=== PATIENT | female | born 1935 | race Caucasian/White ===

== ENCOUNTER 2019-01-19 18:50 | Inpatient (IN) | payer OTHER ==
[~2019-01-19] VITALS: Ht 165.1 cm; Wt 115.2 kg
[2019-01-19] MEDS ORDERED: ZOLOFT100 MG PO (19:04)
[2019-01-19] MEDS ORDERED: SYNTHROID75 MCG PO (19:05)
[2019-01-19] MEDS ORDERED: LISINOPRIL20 MG PO (19:05)
[2019-01-19] MEDS ORDERED: BREO ELLIPTA 21 EACH (19:05)
[2019-01-19] MEDS ORDERED: NORVASC5 MG PO (19:05)
[2019-01-19] MEDS ORDERED: XANAX0.25 MG PO (19:06)
[2019-01-19] MEDS ORDERED: CRESTOR20 MG PO (19:06)
[2019-01-19] MEDS ORDERED: DONEPEZIL HCL10 MG PO (19:06)
[2019-01-19] MEDS ORDERED: COUMADIN6 MG PO (19:06)
[2019-01-19 20:10] LABS: BASOPHILS 0.1 % (0-2); HEMATOCRIT 27.6 % (36.0-48.0); HEMOGLOBIN 8.8 g/dL (12-16); IMMATURE GRANULOCYTES 0.7 % (0-5); LYMPHOCYTES 15.3 % (15-50); MCH 29.5 pg (26.0-34.0); MCHC 31.9 g/dL (31.0-37.0); MCV 92.6 fL (80.0-100.0); MEAN PLATELET VOLUME 8.7 fL (7.4-10.4); MONOCYTES 9.4 % (2-11); NEUTROPHILS 71.5 % (40-80); PLATELET COUNT 287 10x3/uL (130-400); RBC 2.98 10x6/uL (4.00-5.40); RDW 14.8 % (11.5-14.5); WBC 7.3 10x3/uL (4.8-10.8)
[2019-01-19 20:20] LABS: INR 3.11 (0.85-1.17); PROTIME 31.3 SECONDS (11.6-15.0)
[2019-01-19 20:30] VITALS: BP 142/69
[2019-01-19 20:36] LABS: ALBUMIN 2.9 g/dL (3.4-5.0); ALKALINE PHOSPHATASE 35 U/L (46-116); ALT (SGPT) 16 U/L (10-68); BILIRUBIN - TOTAL 1.36 mg/dL (0.2-1.3); CALC OSMOLALITY 293 mosm/kg (275-300); CALCIUM 8.7 mg/dL (8.5-10.1); CARBON DIOXIDE 23.8 mmol/L (21.0-32.0); CHLORIDE - SERUM 101 mmol/L (98-107); CREATININE - SERUM 2.3 mg/dL (0.6-1.3); GLUCOSE 100 mg/dL (74-106); PROTEIN - SERUM 6.1 g/dL (6.4-8.2); SODIUM 134 mmol/L (136-145); UREA NITROGEN 86 mg/dL (7-18); eGFR NON AFRICAN AMERICAN 21 mL/min (90-120)
[2019-01-19 20:47] LABS: CREATINE KINASE 77 UL (21-215); PRO BNP 2054 pg/mL (0-450)
[2019-01-19 20:50] LABS: TROPONIN-I < 0.017 ng/mL (0.000-0.060)
[2019-01-19 20:52] LABS: APPEARANCE CLEAR (CLEAR); BILIRUBIN NEGATIVE (NEGATIVE); COLOR YELLOW (YELLOW); GLUCOSE NEGATIVE (NEGATIVE); KETONE NEGATIVE (NEGATIVE); NITRITE NEGATIVE (NEGATIVE); PROTEIN NEGATIVE (NEGATIVE); SPECIFIC GRAVITY 1.015 (1.005-1.020); UROBILINOGEN NORMAL (NORMAL)
[2019-01-20] VITALS: BP 128/48
[2019-01-20 00:36] VITALS: BP 128/48; BMI 42.4
[2019-01-20 05:35] LABS: BASOPHILS 0 % (0-2); HEMATOCRIT 24.8 % (36.0-48.0); HEMOGLOBIN 7.8 g/dL (12-16); IMMATURE GRANULOCYTES 0.8 % (0-5); LYMPHOCYTES 14.7 % (15-50); MCH 29.1 pg (26.0-34.0); MCHC 31.5 g/dL (31.0-37.0); MCV 92.5 fL (80.0-100.0); MEAN PLATELET VOLUME 8.6 fL (7.4-10.4); MONOCYTES 10.6 % (2-11); NEUTROPHILS 70.9 % (40-80); PLATELET COUNT 269 10x3/uL (130-400); RBC 2.68 10x6/uL (4.00-5.40); WBC 7.7 10x3/uL (4.8-10.8)
[2019-01-20] MEDS ORDERED: ALEVE220 MG PO (06:01)
[2019-01-20] MEDS ORDERED: LANTUS SQ (06:01)
[2019-01-20 06:07] LABS: ANION GAP 13.6 mmol/L (8-16); CALCIUM 8.6 mg/dL (8.5-10.1); CARBON DIOXIDE 24.2 mmol/L (21.0-32.0); CREATININE - SERUM 1.9 mg/dL (0.6-1.3); MAGNESIUM - SERUM 1.8 mg/dL (1.8-2.4); PHOSPHOROUS 4.4 mg/dL (2.5-4.9); POTASSIUM - SERUM 5.8 mmol/L (3.5-5.1)
[2019-01-20 09:22] VITALS: BP 127/40
[2019-01-20 11:10] LABS: INR 3.03 (0.85-1.17); PROTIME 30.6 SECONDS (11.6-15.0)
[2019-01-20 13:48] VITALS: BP 136/84
[2019-01-20] MEDS ORDERED: NAPROSYN500 MG PO (16:25)
[2019-01-20 17:18] VITALS: BP 136/44
[2019-01-20 20:00] VITALS: BP 139/67
[2019-01-21] VITALS: BP 141/64
[2019-01-21 03:00] VITALS: BP 148/53
[2019-01-21 03:59] LABS: BASOPHILS 0.2 % (0-2); EOSINOPHILS 2.9 % (0-7); HEMATOCRIT 25.6 % (36.0-48.0); HEMOGLOBIN 7.9 g/dL (12-16); IMMATURE GRANULOCYTES 1.2 % (0-5); LYMPHOCYTES 14.8 % (15-50); MCH 29.3 pg (26.0-34.0); MCHC 30.9 g/dL (31.0-37.0); MEAN PLATELET VOLUME 8.6 fL (7.4-10.4); MONOCYTES 10.5 % (2-11); NEUTROPHILS 70.4 % (40-80); PLATELET COUNT 274 10x3/uL (130-400); RDW 15.4 % (11.5-14.5); WBC 6.6 10x3/uL (4.8-10.8)
[2019-01-21 04:04] LABS: MCV 94.8 fL (80.0-100.0)
[2019-01-21 04:08] LABS: INR 3.01 (0.85-1.17); PROTIME 30.4 SECONDS (11.6-15.0)
[2019-01-21 04:13] LABS: ALBUMIN 2.5 g/dL (3.4-5.0); ANION GAP 15.9 mmol/L (8-16); BILIRUBIN - TOTAL 0.88 mg/dL (0.2-1.3); CALCIUM 8.5 mg/dL (8.5-10.1); CARBON DIOXIDE 22.3 mmol/L (21.0-32.0); CREATININE - SERUM 1.5 mg/dL (0.6-1.3); POTASSIUM - SERUM 5.2 mmol/L (3.5-5.1); PROTEIN - SERUM 5.9 g/dL (6.4-8.2)
[2019-01-21 08:46] VITALS: BP 151/61
[2019-01-21 12:31] LABS: % SATURATION 12 % (15-55); IRON 34 ug/dl (35-150); TOTAL IRON BIND CAPACITY 265 ug/dl (260-445); UNSAT IRON BIND CAPACITY 231 ug/dl (150-375)
[2019-01-21 13:46] VITALS: BP 146/44
[2019-01-21 18:12] VITALS: BP 157/57
[2019-01-21 20:00] VITALS: BP 141/54
[2019-01-22 05:05] LABS: BASOPHILS 0.1 % (0-2); EOSINOPHILS 3.2 % (0-7); HEMATOCRIT 24.6 % (36.0-48.0); LYMPHOCYTES 15.2 % (15-50); MCH 29.3 pg (26.0-34.0); MCHC 30.5 g/dL (31.0-37.0); MCV 96.1 fL (80.0-100.0); MEAN PLATELET VOLUME 8.4 fL (7.4-10.4); MONOCYTES 9.8 % (2-11); NEUTROPHILS 70.7 % (40-80); PLATELET COUNT 314 10x3/uL (130-400); RBC 2.56 10x6/uL (4.00-5.40); RDW 15.3 % (11.5-14.5); WBC 7.1 10x3/uL (4.8-10.8)
[2019-01-22 05:25] LABS: INR 2.51 (0.85-1.17); PROTIME 26.4 SECONDS (11.6-15.0)
[2019-01-22 05:30] LABS: HEMOGLOBIN 7.5 g/dL (12-16)
[2019-01-22 05:36] LABS: ALBUMIN 2.4 g/dL (3.4-5.0); ANION GAP 14.3 mmol/L (8-16); BILIRUBIN - TOTAL 0.76 mg/dL (0.2-1.3); CALCIUM 8.4 mg/dL (8.5-10.1); CARBON DIOXIDE 22.6 mmol/L (21.0-32.0); CREATININE - SERUM 1.3 mg/dL (0.6-1.3); POTASSIUM - SERUM 4.9 mmol/L (3.5-5.1); PROTEIN - SERUM 5.8 g/dL (6.4-8.2)
[2019-01-22 09:15] VITALS: BP 158/54
[2019-01-22 10:19] LABS: FOLATE (FOLIC ACID) - SERUM 12.2 ng/mL (>3.0)
[2019-01-22 13:50] VITALS: BP 152/62
[2019-01-22 19:01] VITALS: BP 147/75
[2019-01-22 20:41] VITALS: BP 150/69
[2019-01-23 00:57] VITALS: BP 138/56
[2019-01-23 05:54] VITALS: BP 142/53
[2019-01-23 06:10] LABS: BASOPHILS 0.1 % (0-2); EOSINOPHILS 2.7 % (0-7); HEMATOCRIT 29.1 % (36.0-48.0); HEMOGLOBIN 8.8 g/dL (12-16); IMMATURE GRANULOCYTES 1.1 % (0-5); LYMPHOCYTES 14.4 % (15-50); MCH 28.8 pg (26.0-34.0); MCHC 30.2 g/dL (31.0-37.0); MCV 95.1 fL (80.0-100.0); MEAN PLATELET VOLUME 8.5 fL (7.4-10.4); NEUTROPHILS 72.7 % (40-80); PLATELET COUNT 309 10x3/uL (130-400); RBC 3.06 10x6/uL (4.00-5.40); RDW 16.4 % (11.5-14.5); WBC 7.1 10x3/uL (4.8-10.8)
[2019-01-23 06:23] LABS: ALBUMIN 2.7 g/dL (3.4-5.0); ANION GAP 14.2 mmol/L (8-16); BILIRUBIN - TOTAL 1.08 mg/dL (0.2-1.3); CALCIUM 8.6 mg/dL (8.5-10.1); CARBON DIOXIDE 22.2 mmol/L (21.0-32.0); CREATININE - SERUM 1.2 mg/dL (0.6-1.3); POTASSIUM - SERUM 4.4 mmol/L (3.5-5.1); PROTEIN - SERUM 6.3 g/dL (6.4-8.2)
[2019-01-23 06:46] LABS: INR 2.07 (0.85-1.17); PROTIME 22.6 SECONDS (11.6-15.0)
[2019-01-23 08:55] VITALS: BP 132/61
[2019-01-23 13:36] VITALS: BP 129/69
--- NOTE | 2019-01-23 15:36 | MORECARE ---
CASE MANAGEMENT DISCHARGE SUMMARY PATIENT: BENJAMIN PHELPS UNIT: [id number] ADM DATE: 01/19/19 AGE: 83 : 35 SEX: F ROOM/BED: D.2205 AUTHOR: OSVALDO,DOC PHYSICIAN: REFERRING PHYSICIAN: FRANSICO VERGARA MD DATE OF SERVICE: 01/23/19 Discharge Plan Patient Name: BENJAMIN PHELPS Facility: [facility]:[place] : 1935 Planned Disposition: Inpatient Rehab Anticipated Discharge Date: Discharge Date: Expected LOS: Initial Reviewer: [id number] Initial Review Date: 01/19/2019 Generated: 01/23/19 4:35 pm Comments DCP- Discharge Planning Updated by [email or web address]: Carmela Solomon on 01/23/19 2:[address] CM met with and daughter, they had questions about their insurance. They have just moved here from [place] this past week and the patient is unable to care for herself at home and they are unable to care for her either. They have called EMS up to 3 times in one day because they can not get her off the floor or to the bathroom. They have been told that their cigna does not cover in certain counties in [place] & that they are going to have to transition to another insurance that is accepted in [place]. I encouraged them to call cigna to see what is covered for skilled facilities under that plan. I also gave them the number to [facility] for them to call and make an appointment for figure out how and what to do about insurance. They would like inpatient rehab as their first choice and [facility] as their second. GROVER signed and placed in chart. CM to follow and assist as needed DCP- Discharge Planning Updated by [id number]: Michelle Barry on 01/20/19 3:[address] LATE ENTRY 0840 PRIMARY NURSE SPOKE WITH CM THIS AM. SHE REPORTS THE NIGHT NURSE HAD REPORTED THE PATIENT HAD MULTIPLE BRUISES AND WAS NOT CLEAN ON ARRIVAL FROM ER. THEY ARE BOTH CONCERNED ABOUT HER PRESENT CIRCUMSTANCE. PATIENT IS IN PAIN AND REPORTEDLY DIRECTED ALL QUESTIONS TO HER . ER NURSE'S NOTE REVIEWED. NO DESCRIPTION TO HER APPEARENCE. TC TO [facility] [employer] REGARDING SITUATION WHEN THE PATIENT WAS TREATED AND TRANSPORTED. CM REC CB THEN ONE OF THE [employer] PROVIDERS VISITED WITH CM ON SITE. HE REPORTS [employer] IS FAMILIAR WITH THE FAMILY. THEY HAD BEEN TO THE HOUSE ON 5 OCCASIONS TO ASSIST W/ MOVING THE PATIENT. HE REPORTED THEY RECENTLY RELOCATED TO [facility]. THE REPORTEDLY FELL PRIOR TO THE MOVE. [facility] ASS[facility]. THE SERVICE FELT THE PATIENT NEED ACUTE CARE THEREFORE PATIENT WAS TRANSPORTED TO [facility]. PATIENT HAS A AND DAUGHTER. THEY HAVE NOT VISITED TODAY OF THIS TIME. CM WILL FOLLOW TO ASSIST. REPORTEDLY THE WOULD LIKE SKILLED REHAB CARE FOR HIS AT DISCHARGE. CM TO FOLLOW AND ASSIST. Coverage Notice Reviewer: [id number] - Carmela Carbajal Notice Issued Date-Time: 01/23/2019 15:00 Notice Type: Patient Choice Letter Notice Delivered To: Family Member Relationship to Patient: Spouse Record Clerk Salesperson Name: graciela phelps Delivery Method: - Yohana Days: Prior Verbal Notification: Recipient Understood Notice: Recipient Signature: Yes Med Rec Note Co-signed by Attending: Coverage Notice Comment: Patient Name: BENJAMIN PHELPS Page [id number] at 1536 All edits/amendments must be made on the electronic document DICTATION DATE: 01/23/19 1535 METAL STUD FRAMER: MYKEL 01/23/19 1535 RPT#: [id number] DC DATE: STATUS: ADM IN [facility] [address] [place] [address] END OF REPORT
[2019-01-23 16:35] VITALS: BP 128/62
[2019-01-23 20:30] VITALS: BP 137/56
[2019-01-24 00:20] VITALS: BP 126/39
[2019-01-24 05:05] VITALS: BP 119/53
[2019-01-24 05:20] LABS: BASOPHILS 0.5 % (0-2); EOSINOPHILS 2.5 % (0-7); HEMOGLOBIN 9.2 g/dL (12-16); IMMATURE GRANULOCYTES 0.9 % (0-5); LYMPHOCYTES 8.6 % (15-50); MCH 29.5 pg (26.0-34.0); MCHC 30.7 g/dL (31.0-37.0); MCV 96.2 fL (80.0-100.0); MEAN PLATELET VOLUME 8.3 fL (7.4-10.4); MONOCYTES 8.8 % (2-11); NEUTROPHILS 78.7 % (40-80); PLATELET COUNT 264 10x3/uL (130-400); RBC 3.12 10x6/uL (4.00-5.40); RDW 16.2 % (11.5-14.5); WBC 8.8 10x3/uL (4.8-10.8)
[2019-01-24 05:40] LABS: ALBUMIN 2.5 g/dL (3.4-5.0); ANION GAP 13.1 mmol/L (8-16); BILIRUBIN - TOTAL 0.88 mg/dL (0.2-1.3); CALCIUM 8.5 mg/dL (8.5-10.1); CARBON DIOXIDE 22.8 mmol/L (21.0-32.0); CREATININE - SERUM 1.2 mg/dL (0.6-1.3); POTASSIUM - SERUM 4.9 mmol/L (3.5-5.1); PROTEIN - SERUM 6.1 g/dL (6.4-8.2)
[2019-01-24 05:54] LABS: INR 2.05 (0.85-1.17); PROTIME 22.5 SECONDS (11.6-15.0)
[2019-01-24 09:12] VITALS: BP 131/67
[2019-01-24 12:17] VITALS: BP 110/43
[2019-01-24 16:45] VITALS: BP 121/64
[2019-01-24 20:03] VITALS: BP 133/50
[2019-01-25 00:23] VITALS: BP 117/44
[2019-01-25 04:27] LABS: BASOPHILS 0.1 % (0-2); EOSINOPHILS 3.2 % (0-7); HEMATOCRIT 28.9 % (36.0-48.0); HEMOGLOBIN 8.6 g/dL (12-16); IMMATURE GRANULOCYTES 0.8 % (0-5); LYMPHOCYTES 11.1 % (15-50); MCH 28.9 pg (26.0-34.0); MCHC 29.8 g/dL (31.0-37.0); MEAN PLATELET VOLUME 8.6 fL (7.4-10.4); MONOCYTES 7.6 % (2-11); NEUTROPHILS 77.2 % (40-80); PLATELET COUNT 264 10x3/uL (130-400); RBC 2.98 10x6/uL (4.00-5.40); WBC 8.8 10x3/uL (4.8-10.8)
[2019-01-25 04:42] LABS: INR 1.91 (0.85-1.17); PROTIME 21.2 SECONDS (11.6-15.0)
[2019-01-25 04:55] LABS: ALBUMIN 2.4 g/dL (3.4-5.0); ANION GAP 11.6 mmol/L (8-16); BILIRUBIN - TOTAL 0.75 mg/dL (0.2-1.3); CALCIUM 8.5 mg/dL (8.5-10.1); CARBON DIOXIDE 25.1 mmol/L (21.0-32.0); CREATININE - SERUM 1.5 mg/dL (0.6-1.3); POTASSIUM - SERUM 4.7 mmol/L (3.5-5.1); PROTEIN - SERUM 5.7 g/dL (6.4-8.2)
[2019-01-25 05:19] VITALS: BP 109/44
[2019-01-25 08:25] VITALS: BP 120/47
[2019-01-25 12:45] VITALS: BP 140/45
--- NOTE | 2019-01-25 12:50 | MORECARE ---
CASE MANAGEMENT DISCHARGE SUMMARY PATIENT: BENJAMIN PHELPS UNIT: [id number] ADM DATE: 01/19/19 AGE: 83 : 35 SEX: F ROOM/BED: D.2205 AUTHOR: OSVALDO,DOC PHYSICIAN: REFERRING PHYSICIAN: FRANSICO VERGARA MD DATE OF SERVICE: 01/25/19 Discharge Plan Patient Name: BENJAMIN PHELPS Facility: [facility]:[place] : 1935 Planned Disposition: Inpatient Rehab Anticipated Discharge Date: Discharge Date: Expected LOS: Initial Reviewer: [id number] Initial Review Date: 01/19/2019 Generated: 01/25/19 1:50 pm Comments DCP- Discharge Planning Updated by [id number]: Carmela Carbajal on 01/25/19 11:[address] attempted to call to let him know that she has been accepted to inpatient rehab, left message DCP- Discharge Planning Updated by [id number]: Carmela Carbajal on 01/23/19 2:[address] CM met with and daughter, they had questions about their insurance. They have just moved here from [place] this past week and the patient is unable to care for herself at home and they are unable to care for her either. They have called EMS up to 3 times in one day because they can not get her off the floor or to the bathroom. They have been told that their cigna does not cover in certain counties in [place] & that they are going to have to transition to another insurance that is accepted in [place]. I encouraged them to call cigna to see what is covered for skilled facilities under that plan. I also gave them the number to [facility] for them to call and make an appointment for figure out how and what to do about insurance. They would like inpatient rehab as their first choice and [facility] as their second. GROVER signed and placed in chart. CM to follow and assist as needed DCP- Discharge Planning Updated by [email or web address]: Michelle Barry on 01/20/19 3:[address] LATE ENTRY 0840 PRIMARY NURSE SPOKE WITH CM THIS AM. SHE REPORTS THE NIGHT NURSE HAD REPORTED THE PATIENT HAD MULTIPLE BRUISES AND WAS NOT CLEAN ON ARRIVAL FROM ER. THEY ARE BOTH CONCERNED ABOUT HER PRESENT CIRCUMSTANCE. PATIENT IS IN PAIN AND REPORTEDLY DIRECTED ALL QUESTIONS TO HER . ER NURSE'S NOTE REVIEWED. NO DESCRIPTION TO HER APPEARENCE. TC TO [employer] REGARDING SITUATION WHEN THE PATIENT WAS TREATED AND TRANSPORTED. LET[facility]IA REC CB THEN ONE OF THE [facility] PROVIDERS VISITED WITH CM ON SITE. HE REPORTS [facility] IS FAMILIAR WITH THE FAMILY. THEY HAD BEEN TO THE HOUSE ON 5 OCCASIONS TO ASSIST W/ MOVING THE PATIENT. HE REPORTED THEY RECENTLY RELOCATED TO [facility]. THE REPORTEDLY FELL PRIOR TO THE MOVE. [facility] ASSISTED INREFERRAL TO [facility] SCIENT[facility] ADVISOR SERVICE. THE SERVICE FELT THE PATIENT NEED ACUTE CARE THEREFORE PATIENT WAS TRANSPORTED TO [facility]. PATIENT HAS A AND DAUGHTER. THEY HAVE NOT VISITED TODAY OF THIS TIME. CM WILL FOLLOW TO ASSIST. REPORTEDLY THE WOULD LIKE SKILLED REHAB CARE FOR HIS AT DISCHARGE. CM TO FOLLOW AND ASSIST. Coverage Notice Reviewer: [id number] Yulisa Carbajal Notice Issued Date-Time: 01/23/2019 15:00 Notice Type: Patient Choice Letter Notice Delivered To: Family Member Relationship to Patient: Spouse Postal Transportation Clerk Name: graciela phelps Delivery Method: - Yohana Days: Prior Verbal Notification: Recipient Understood Notice: Recipient Signature: Yes Med Rec Note Co-signed by Attending: Coverage Notice Comment: Last DP export: 01/23/19 2:36 pm Patient Name: BENJAMIN PHELPS Page [phone] at 1250 All edits/amendments must be made on the electronic document DICTATION DATE: 01/25/191248 WHITE SUGAR SUPERVISOR: YMKEL 01/25/19 1249 RPT#: [id number] DC DATE: STATUS: ADM IN [facility] [address] [place] [address] END OF REPORT
--- NOTE | 2019-01-25 15:37 | MORECARE ---
CASE MANAGEMENT DISCHARGE SUMMARY PATIENT: BENJAMIN PHELPS UNIT: [id number] ADM DATE: 01/19/19 AGE: 83 : 35 SEX: F ROOM/BED: D.2205 AUTHOR: OSVALDO,DOC PHYSICIAN: REFERRING PHYSICIAN: FRANSICO VERGARA MD DATE OF SERVICE: 01/25/19 Discharge Plan Patient Name: BENJAMIN PHELPS Facility: [facility]:[place] : 1935 Planned Disposition: Inpatient Rehab Anticipated Discharge Date: Discharge Date: Expected LOS: Initial Reviewer: [id number] Initial Review Date: 01/19/2019 Generated: 01/25/19 4:37 pm Comments DCP- Discharge Planning Updated by [id number]: Carmela Carbajal on 01/25/19 11:[address] attempted to call to let him know that she has been accepted to inpatient rehab, left message DCP- Discharge Planning Updated by [id number]: Carmela Carbajal on 01/23/19 2:[address] CM met with and daughter, they had questions about their insurance. They have just moved here from [place] this past week and the patient is unable to care for herself at home and they are unable to care for her either. They have called EMS up to 3 times in one day because they can not get her off the floor or to the bathroom. They have been told that their cigna does not cover in certain counties in [place] & that they are going to have to transition to another insurance that is accepted in [place]. I encouraged them to call cigna to see what is covered for skilled facilities under that plan. I also gave them the number to [facility] for them to call and make an appointment for figure out how and what to do about insurance. They would like inpatient rehab as their first choice and [facility] as their second. GROVER signed and placed in chart. CM to follow and assist as needed DCP- Discharge Planning Updated by [id number]: Michelle Barry on 01/20/19 3:[address] LATE ENTRY 0840 PRIMARY NURSE SPOKE WITH CM THIS AM. SHE REPORTS THE NIGHT NURSE HAD REPORTED THE PATIENT HAD MULTIPLE BRUISES AND WAS NOT CLEAN ON ARRIVAL FROM ER. THEY ARE BOTH CONCERNED ABOUT HER PRESENT CIRCUMSTANCE. PATIENT IS IN PAIN AND REPORTEDLY DIRECTED ALL QUESTIONS TO HER . ER NURSE'S NOTE REVIEWED. NO DESCRIPTION TO HER APPEARENCE. TC TO [employer] REGARDING SITUATION WHEN THE PATIENT WAS TREATED AND TRANSPORTED. [facility]IA REC CB THEN ONE OF THE [employer] PROVIDERS VISITED WITH CM ON SITE. HE REPORTS [facility] IS FAMILIAR WITH THE FAMILY. THEY HAD BEEN TO THE HOUSE ON 5 OCCASIONS TO ASSIST W/ MOVING THE PATIENT. HE REPORTED THEY RECENTLY RELOCATED TO [facility]. THE REPORTEDLY FELL PRIOR TO THE MOVE. [facility] ASSISTED INREFERRAL TO [facility]IE CR[facility]ING MACHINE OPERATOR SERVICE. THE SERVICE FELT THE PATIENT NEED ACUTE CARE THEREFORE PATIENT WAS TRANSPORTED TO [facility]. PATIENT HAS A AND DAUGHTER. THEY HAVE NOT VISITED TODAY OF THIS TIME. CM WILL FOLLOW TO ASSIST. REPORTEDLY THE WOULD LIKE SKILLED REHAB CARE FOR HIS AT DISCHARGE. CM TO FOLLOW AND ASSIST. Coverage Notice Reviewer: [id number] Yulisa Carbajal Notice Issued Date-Time: 01/23/2019 15:00 Notice Type: Patient Choice Letter Notice Delivered To: Family Member Relationship to Patient: Spouse Instructor Dramatic Arts Name: graciela phelps Delivery Method: - Yohana Days: Prior Verbal Notification: Recipient Understood Notice: Recipient Signature: Yes Med Rec Note Co-signed by Attending: Coverage Notice Comment: Last DP export: 01/25/19 11:50 a Patient Name: BENJAMIN PHELPS Page [phone] at 1537 All edits/amendments must be made on the electronic document DICTATION DATE: 01/25/191535 SOCIAL WORK NURSE: MYKEL 01/25/191535 RPT#: [id number] DC DATE: STATUS: ADM IN [facility] [address] [place] [address] END OF REPORT
[2019-01-25 16:40] VITALS: BP 122/48
--- NOTE | 2019-01-25 16:41 | EC ---
PATIENT:BENJAMIN CHAMBERS DATE OF SERVICE: 01/19/19 SEX: F MEDICAL RECORD: [id number] DATE OF : [birth year] LOCATION:D.MS Tee220 AGE OF PATIENT: 83 ADMISSION DATE: 01/19/19 REFERRING PHYSICIAN: INTERPRETING PHYSICIAN: JUAN LORENZO MD ECHOCARDIOGRAM REPORT ECHO CHARGES 4 ECHO COMPLETE Date: 01/21/19 CLINICAL DIAGNOSIS: RECENET CVA, EMBOLIC STROKE ECHOCARDIOGRAPHIC MEASUREMENTS (adult normal given) AC root (d.<3.7cm) 3.1 cm LV Septum d (<1.2 cm> 1.4 cm Valve Excursion 1.5 cm LV Septum (systole) 1.5 cm Left Atria (s.<4.0cm> 3.3 cm LVPW d(<1.2cm) 1.4 cm RV (d.<2.3cm) 3.1 cm LVPW (sytole) 1.5 cm LV diastole(<5.6CM) 4.9 cm MV E-F(>70mm/sec) cm LV systole 3.7 cm LVOT Diameter 1.6 cm MV exc.(>10mm) cm Est.ejection fraction (50-75%) % DOPPLER: LVIT cm/sec A 74 cm/sec E 117 cm/sec LA cm/sec RVSP 39.9 mmHg LVOT 135 cm/sec AOP1/2T m/s Asc. Ao 236 cm/sec RVOT 104 cm/sec RA cm/sec PA 115 cm/sec AV Gradient Peak 22.2 mmHg AV Mean 12.7 mmHg AV Area 1.2 cm MV Gradient Peak 10.5 mmHg MV Mean 3.9 mmHg MV Area cm COMMENTS: Jackhammer Splitter Operator: Bo CALLEJAS Ribbon Winder: 1 Dr. Lorenzo TAPE# PACS Pericardial Effusion N DATE OF SERVICE: 01/21/2019 ECHOCARDIOGRAM DATE OF SERVICE: 01/21/2019 FINDINGS: 1. Left ventricular chamber size is within normal limits. Left ventricular systolic function is normal. Overall ejection fraction estimated at 60%. 2. Left atrium, right atrium, and right ventricular chamber sizes are within ECHOCARDIOGRAM REPORT [id number] BENJAMIN CHAMBERS normal limits. 3. Valvular structures have normal structure and motion. 4. Doppler interrogation reveals only trace mitral regurgitation. No other valvular insufficiency or stenosis. 5. No evidence of pericardial effusion or left ventricular thrombus. TRANSINT:[id number] Voice Confirmation ID: [id number] DOCUMENT ID: [id number] JUAN LORENZO MD at 1641 CC: [id number] DICTATION DATE: 01/22/19 1209 PLASTERER TENDER: 01/22/19 1233 ADM IN [facility] [address] [place] [address]
[2019-01-25 20:00] VITALS: BP 119/51
[2019-01-26] VITALS: BP 124/44
[2019-01-26 03:00] VITALS: BP 120/50
[2019-01-26 05:41] LABS: BASOPHILS 0.2 % (0-2); EOSINOPHILS 3.2 % (0-7); HEMATOCRIT 28.8 % (36.0-48.0); HEMOGLOBIN 8.6 g/dL (12-16); IMMATURE GRANULOCYTES 0.6 % (0-5); LYMPHOCYTES 10.8 % (15-50); MCH 29.1 pg (26.0-34.0); MCHC 29.9 g/dL (31.0-37.0); MCV 97.3 fL (80.0-100.0); MEAN PLATELET VOLUME 8.6 fL (7.4-10.4); MONOCYTES 8.5 % (2-11); NEUTROPHILS 76.7 % (40-80); PLATELET COUNT 277 10x3/uL (130-400); RBC 2.96 10x6/uL (4.00-5.40); RDW 16.3 % (11.5-14.5); WBC 8.5 10x3/uL (4.8-10.8)
[2019-01-26 05:47] LABS: INR 1.56 (0.85-1.17); PROTIME 18.1 SECONDS (11.6-15.0)
[2019-01-26 06:02] LABS: ANION GAP 11.7 mmol/L (8-16); CALCIUM 8.5 mg/dL (8.5-10.1); CARBON DIOXIDE 23.8 mmol/L (21.0-32.0); CREATININE - SERUM 1.4 mg/dL (0.6-1.3); POTASSIUM - SERUM 4.5 mmol/L (3.5-5.1); VANCOMYCIN - TROUGH 25.8 ug/mL (10.0-20.0)
[2019-01-26 09:09] VITALS: BP 137/53
[2019-01-26 12:50] VITALS: BP 104/41
[2019-01-26 17:26] VITALS: BP 117/62
[2019-01-26 20:15] VITALS: BP 120/41
[2019-01-27 00:20] VITALS: BP 126/41
[2019-01-27 05:55] VITALS: BP 133/57
[2019-01-27 06:56] LABS: BASOPHILS 0.2 % (0-2); EOSINOPHILS 2.7 % (0-7); HEMATOCRIT 29.6 % (36.0-48.0); HEMOGLOBIN 8.7 g/dL (12-16); IMMATURE GRANULOCYTES 0.5 % (0-5); LYMPHOCYTES 6.5 % (15-50); MCH 29.1 pg (26.0-34.0); MCHC 29.4 g/dL (31.0-37.0); MEAN PLATELET VOLUME 9.2 fL (7.4-10.4); MONOCYTES 6.2 % (2-11); NEUTROPHILS 83.9 % (40-80); PLATELET COUNT 253 10x3/uL (130-400); RBC 2.99 10x6/uL (4.00-5.40); RDW 16.2 % (11.5-14.5)
[2019-01-27 07:07] LABS: PROTIME 14.5 SECONDS (11.6-15.0)
[2019-01-27 07:10] LABS: ANION GAP 15.7 mmol/L (8-16); CALCIUM 8.4 mg/dL (8.5-10.1); CARBON DIOXIDE 21.2 mmol/L (21.0-32.0); CREATININE - SERUM 1.2 mg/dL (0.6-1.3); INR 1.18 (0.85-1.17); POTASSIUM - SERUM 4.9 mmol/L (3.5-5.1)
[2019-01-27 08:13] VITALS: BP 115/84
[2019-01-27 12:37] VITALS: BP 144/53
[2019-01-27 16:29] VITALS: BP 136/82
[2019-01-27 21:07] VITALS: BP 135/60
[2019-01-28 01:43] VITALS: BP 143/60
[2019-01-28 05:24] LABS: BASOPHILS 0.2 % (0-2); EOSINOPHILS 2.6 % (0-7); HEMATOCRIT 29.8 % (36.0-48.0); HEMOGLOBIN 8.7 g/dL (12-16); IMMATURE GRANULOCYTES 0.4 % (0-5); LYMPHOCYTES 5.4 % (15-50); MCH 28.9 pg (26.0-34.0); MCHC 29.2 g/dL (31.0-37.0); MEAN PLATELET VOLUME 9.1 fL (7.4-10.4); MONOCYTES 7.1 % (2-11); NEUTROPHILS 84.3 % (40-80); PLATELET COUNT 262 10x3/uL (130-400); RBC 3.01 10x6/uL (4.00-5.40); RDW 16.3 % (11.5-14.5); WBC 12.1 10x3/uL (4.8-10.8)
[2019-01-28 05:25] LABS: ANION GAP 12.2 mmol/L (8-16); CARBON DIOXIDE 24.1 mmol/L (21.0-32.0); CREATININE - SERUM 1.3 mg/dL (0.6-1.3); POTASSIUM - SERUM 4.3 mmol/L (3.5-5.1)
[2019-01-28 05:31] LABS: INR 1.41 (0.85-1.17); PROTIME 16.7 SECONDS (11.6-15.0)
[2019-01-28 05:36] VITALS: BP 122/53
[2019-01-28 05:57] LABS: APPEARANCE HAZY (CLEAR); BACTERIA MODERATE /hpf (NONE SEEN); BILIRUBIN NEGATIVE (NEGATIVE); COLOR YELLOW (YELLOW); EPITHELIAL CELLS RARE /hpf (0-5); GLUCOSE NEGATIVE (NEGATIVE); KETONE NEGATIVE (NEGATIVE); NITRITE NEGATIVE (NEGATIVE); PROTEIN TRACE mg/dL (NEGATIVE); RED CELLS - URINE 0-5 /hpf (0-5); UROBILINOGEN NORMAL (NORMAL); WHITE CELLS - URINE 25-50 /hpf (0-5)
[2019-01-28 08:09] VITALS: BP 124/84
[2019-01-28 12:11] VITALS: BP 128/80; BP 168/78
[2019-01-28 13:12] VITALS: Ht 165.1 cm; Wt 115.2 kg
[2019-01-28 15:41] VITALS: BP 132/54
[2019-01-28 20:52] VITALS: BP 118/43
[2019-01-29 00:53] VITALS: BP 140/52
[2019-01-29 05:42] VITALS: BP 140/51
[2019-01-29 06:28] LABS: ANION GAP 12.2 mmol/L (8-16); CALCIUM 9.1 mg/dL (8.5-10.1); CREATININE - SERUM 1.2 mg/dL (0.6-1.3); POTASSIUM - SERUM 4.2 mmol/L (3.5-5.1)
[2019-01-29 06:33] LABS: BASOPHILS 0.2 % (0-2); HEMATOCRIT 31.4 % (36.0-48.0); HEMOGLOBIN 9.3 g/dL (12-16); IMMATURE GRANULOCYTES 0.5 % (0-5); LYMPHOCYTES 6.3 % (15-50); MCH 29.2 pg (26.0-34.0); MCHC 29.6 g/dL (31.0-37.0); MCV 98.4 fL (80.0-100.0); MONOCYTES 6.8 % (2-11); NEUTROPHILS 84.2 % (40-80); PLATELET COUNT 243 10x3/uL (130-400); RBC 3.19 10x6/uL (4.00-5.40); RDW 16.1 % (11.5-14.5); WBC 12.1 10x3/uL (4.8-10.8)
[2019-01-29 07:07] LABS: INR 1.46 (0.85-1.17); PROTIME 17.2 SECONDS (11.6-15.0)
[2019-01-29 09:13] VITALS: BP 104/49
--- NOTE | 2019-01-29 14:00 | MORECARE ---
CASE MANAGEMENT DISCHARGE SUMMARY PATIENT: BENJAMIN PHELPS UNIT: [id number] ADM DATE: 01/19/19 AGE: 83 : 35 SEX: F ROOM/BED: D.2205 AUTHOR: OSVALDO,DOC PHYSICIAN: REFERRING PHYSICIAN: FRANSICO VERGARA MD DATE OF SERVICE: 01/29/19 Discharge Plan Patient Name: BENJAMIN PHELPS Facility: [facility]:[place] : 1935 Planned Disposition: Inpatient Rehab Anticipated Discharge Date: Discharge Date: Expected LOS: Initial Reviewer: [id number] Initial Review Date: 01/19/2019 Generated: 01/29/19 3:00 pm Comments DCP- Discharge Planning Updated by [email or web address]: Carmela Carbajal on 01/29/19 12:[address] PATIENT WILL BE DISCHARGED TO INPATIENT REHAB TODAY, IMM SERVED AND EXPLAINED DCP- Discharge Planning Updated by [id number]: Carmela Carbajal on 01/25/19 11:[address] attempted to call to let him know that she has been accepted to inpatient rehab, left message DCP- Discharge Planning Updated by [id number]: Carmela Carbajal on 01/23/19 2:[address] CM met with and daughter, they had questions about their insurance. They have just moved here from [place] this past week and the patient is unable to care for herself at home and they are unable to care for her either. They have called EMS up to 3 times in one day because they can not get her off the floor or to the bathroom. They have been told that their cigna does not cover in certain counties in [place] & that they are going to have to transition to another insurance that is accepted in [place]. I encouraged them to call cigna to see what is covered for skilled facilities under that plan. I also gave them the number to [facility] for them to call and make an appointment for figure out how and what to do about insurance. They would like inpatient rehab as their first choice and [facility] as their second. GROVER signed and placed in chart. CM to follow and assist as needed DCP- Discharge Planning Updated by [id number]: Michelle Barry on 01/20/19 3:[address] LATE ENTRY 0840 PRIMARY NURSE SPOKE WITH CM THIS AM. SHE REPORTS THE NIGHT NURSE HAD REPORTED THE PATIENT HAD MULTIPLE BRUISES AND WAS NOT CLEAN ON ARRIVAL FROM ER. THEY ARE BOTH CONCERNED ABOUT HER PRESENT CIRCUMSTANCE. PATIENT IS IN PAIN AND REPORTEDLY DIRECTED ALL QUESTIONS TO HER . ER NURSE'S NOTE REVIEWED. NO DESCRIPTION TO HER APPEARENCE. TC TO [employer] REGARDING SITUATION WHEN THE PATIENT WAS TREATED AND TRANSPORTED. LETITIA REC CB THEN ONE OF THE [facility] PROVIDERS VISITED WITH CM ON SITE. HE REPORTS [facility] IS FAMILIAR WITH THE FAMILY. THEY HAD BEEN TO THE HOUSE ON 5 OCCASIONS TO ASSIST W/ MOVING THE PATIENT. HE REPORTED THEY RECENTLY RELOCATED TO [facility]. THE REPORTEDLY FELL PRIOR TO THE MOVE. [facility] ASSISTED INREFERRAL TO [facility]. THE SERVICE FELT THE PATIENT NEED ACUTE CARE THEREFORE PATIENT WAS TRANSPORTED TO [facility]. PATIENT HAS A AND DAUGHTER. THEY HAVE NOT VISITED TODAY OF THIS TIME. CM WILL FOLLOW TO ASSIST. REPORTEDLY THE WOULD LIKE SKILLED REHAB CARE FOR HIS AT DISCHARGE. CM TO FOLLOW AND ASSIST. Coverage Notice Reviewer: [id number] Yulisa Carbajal Notice Issued Date-Time: 01/23/2019 15:00 Notice Type: Patient Choice Letter Notice Delivered To: Family Member Relationship to Patient: Spouse Community Associate Name: graciela phelps Delivery Method: - Yohana Days: Prior Verbal Notification: Recipient Understood Notice: Recipient Signature: Yes Med Rec Note Co-signed by Attending: Coverage Notice Comment: Reviewer: [id number] Yulisa Carbajal Notice Issued Date-Time: 01/29/2019 13:00 Notice Type: IM Discharge Notice Notice Delivered To: Patient Relationship to Patient: Community Associate Name: Delivery Method: HAND - Hand Delivered Yohana Days: Prior Verbal Notification: Recipient Understood Notice: Yes Recipient Signature: Yes Med Rec Note Co-signed by Attending: Coverage Notice Comment: Last DP export: 01/25/19 2:37 p Patient Name: BENJAMIN PHELPS Page [id number] at 1400 All edits/amendments must be made on the electronic document DICTATION DATE: 01/29/19 135 CANDLES POURER: MYKEL 01/29/19 1352 RPT#: [id number] DC DATE: STATUS: ADM IN [facility] [address] [place] [address] END OF REPORT
[2019-01-29 14:08] VITALS: BP 135/49
[2019-01-29] MEDS ORDERED: TESSALON PERLE100 MG PO (14:51)
[2019-01-29] MEDS ORDERED: IPRAT-ALBUT 0.5-3 ML UPD (14:52)
[2019-01-29] MEDS ORDERED: MUCINEX600 MG PO (14:52)
[2019-01-29] MEDS ORDERED: COUMADIN6 MG PO (20:20)
--- NOTE | 2019-01-30 12:27 | MORECARE ---
CASE MANAGEMENT DISCHARGE SUMMARY PATIENT: BENJAMIN PHELPS UNIT: [id number] ADM DATE: 01/19/19 AGE: 83 : 35 SEX: F ROOM/BED: D.2205 AUTHOR: OSVALDO,DOC PHYSICIAN: REFERRING PHYSICIAN: FRANSICO VERGARA MD DATE OF SERVICE: 01/30/19 Discharge Plan Patient Name: BENJAMIN PHELPS Facility: [facility]:[place] : 1935 Planned Disposition: Inpatient Rehab Anticipated Discharge Date: Discharge Date: 01/29/2019 Expected LOS: 0 Initial Reviewer: [email or web address] Initial Review Date: 01/19/2019 Generated: 01/30/19 1:27 pm Comments DCP- Discharge Planning Updated by [email or web address]: Carmela Carbajal on 01/29/19 12:[address] PATIENT WILL BE DISCHARGED TO INPATIENT REHAB TODAY, IMM SERVED AND EXPLAINED DCP- Discharge Planning Updated by [id number]: Carmela Carbajal on 01/25/19 11:[address] attempted to call to let him know that she has been accepted to inpatient rehab, left message DCP- Discharge Planning Updated by [email or web address]: Carmela Carbajal on 01/23/19 2:[address] CM met with and daughter, they had questions about their insurance. They have just moved here from [place] this past week and the patient is unable to care for herself at home and they are unable to care for her either. They have called EMS up to 3 times in one day because they can not get her off the floor or to the bathroom. They have been told that their cigna does not cover in certain counties in [place] & that they are going to have to transition to another insurance that is accepted in [place]. I encouraged them to call cigna to see what is covered for skilled facilities under that plan. I also gave them the number to [facility] for them to call and make an appointment for figure out how and what to do about insurance. They would like inpatient rehab as their first choice and [facility] as their second. GROVER signed and placed in chart. CM to follow and assist as needed DCP- Discharge Planning Updated by [email or web address]: Michelle Barry on 01/20/19 3:[address] LATE ENTRY 0840 PRIMARY NURSE SPOKE WITH CM THIS AM. SHE REPORTS THE NIGHT NURSE HAD REPORTED THE PATIENT HAD MULTIPLE BRUISES AND WAS NOT CLEAN ON ARRIVAL FROM ER. THEY ARE BOTH CONCERNED ABOUT HER PRESENT CIRCUMSTANCE. PATIENT IS IN PAIN AND REPORTEDLY DIRECTED ALL QUESTIONS TO HER . ER NURSE'S NOTE REVIEWED. NO DESCRIPTION TO HER APPEARENCE. TC TO [facility] REGARDING SITUATION WHEN THE PATIENT WAS TREATED AND TRANSPORTED. [facility] REC CB THEN ONE OF THE [facility] PROVIDERS VISITED WITH CM ON SITE. HE REPORTS [facility] IS FAMILIAR WITH THE FAMILY. THEY HAD BEEN TO THE HOUSE ON 5 OCCASIONS TO ASSIST W/ MOVING THE PATIENT. HE REPORTED THEY RECENTLY RELOCATED TO [facility]. THE REPORTEDLY FELL PRIOR TO THE MOVE. [facility] ASSISTED INREFERRAL TO [facility]. THE SERVICE FELT THE PATIENT NEED ACUTE CARE THEREFORE PATIENT WAS TRANSPORTED TO [facility]. PATIENT HAS A AND DAUGHTER. THEY HAVE NOT VISITED TODAY OF THIS TIME. CM WILL FOLLOW TO ASSIST. REPORTEDLY THE WOULD LIKE SKILLED REHAB CARE FOR HIS AT DISCHARGE. CM TO FOLLOW AND ASSIST. Coverage Notice Reviewer: [id number] Yulisa Carbajal Notice Issued Date-Time: 01/23/2019 15:00 Notice Type: Patient Choice Letter Notice Delivered To: Family Member Relationship to Patient: Spouse Marketing Planning Manager Name: graciela phelps Delivery Method: - Yohana Days: Prior Verbal Notification: Recipient Understood Notice: Recipient Signature: Yes Med Rec Note Co-signed by Attending: Coverage Notice Comment: Reviewer: [id number] Yulisa Carbajal Notice Issued Date-Time: 01/29/2019 13:00 Notice Type: IM Discharge Notice Notice Delivered To: Patient Relationship to Patient: Marketing Planning Manager Name: Delivery Method: HAND - Hand Delivered Yohana Days: Prior Verbal Notification: Recipient Understood Notice: Yes Recipient Signature: Yes Med Rec Note Co-signed by Attending: Coverage Notice Comment: Last DP export: 01/29/19 1:00 p Patient Name: BENJAMIN PHELPS Page [phone] at 1227 All edits/amendments must be made on the electronic document DICTATION DATE: 01/30/19 1226 ANTIQUE FURNITURE RESTORER: MYKEL 01/30/19 1226 RPT#: [id number] DC DATE:01/29/19 STATUS: DIS IN [facility] [address] [place] [address] END OF REPORT
== END 2019-01-29 16:45 | DRG 64 ==
LOC: D.ER 18:50 → D.MS 22:22 → D.SDCHOLD 01-22 14:21 → D.MS 01-22 14:23
PROVIDERS: Family Medicine; General Practice; Internal Medicine Nephrology; ADMIT Family Medicine; ATTEND Family Medicine
PROC: 0W9B3ZZ Drainage of Left Pleural Cavity, Percutaneous Approach (ICD-10-PCS; principal; 2019-01-28 08:47)
DX: I63.9 Cerebral infarction, unspecified (principal); J15.6 Pneumonia due to other Gram-negative bacteria; N17.9 Acute kidney failure, unspecified; S22.42XA Multiple fractures of ribs, left side, initial encounter for closed fracture; G72.81 Critical illness myopathy; Z68.41 Body mass index [BMI] 40.0-44.9, adult; J90 Pleural effusion, not elsewhere classified; E86.0 Dehydration; D64.9 Anemia, unspecified; E87.5 Hyperkalemia; I95.9 Hypotension, unspecified; E11.65 Type 2 diabetes mellitus with hyperglycemia; I10 Essential (primary) hypertension

== ENCOUNTER 2019-01-29 16:55 | Inpatient (IN) | payer MEDICARE ==
[~2019-01-29] VITALS: Ht 165.1 cm; Wt 109.3 kg
--- NOTE | ~2019-01-29 | CN ---
PATIENT NAME:BENJAMIN CHAMBERS MEDICAL RECORD: [id number] : [birth year] LOCATION:[id number] ADMIT DATE: 01/29/19 ACCOUNT: [id number] CONSULTING PHYSICIAN: DANG FAITH MD REFERRING PHYSICIAN: LEXA GOODRICH MD DATE OF CONSULTATION: 02/06/2019 HISTORY OF PRESENT ILLNESS: The patient is an 83-year-old white female who presented to the hospital for broken ribs, was placed on antibiotics. I spoke with Dr. Goodrich extensively on this patient and given him my impression and treatment regimen. The patient was inhouse up in the ICU, placed on vancomycin for broken ribs and pneumonia. Subsequently, in hospital stay and placed in rehabilitation to develop red rash with new bullous formation. Rash is full body from head to toe, bright erythema with mild desquamation at lateral edges. On extensor surfaces, is noted to have some vesiculation and bulla formation forming. 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 PLAN: Start the patient on Jerri 180 mg twice a day, to start a prednisone regimen of approximately 40 mg p.o. per day. Once bulla formation and redness start to improve, can decrease dose by 10 mg per week until clear. We would also add vancomycin allergy to this patient's medication list and note bullous IgA dermatoses as condition. TRANSINT:[id number] Voice Confirmation ID: [id number] DOCUMENT ID: [id number] DANG FAITH MD CC: [id number] DICTATION DATE: 02/06/19 1241 WEATHERIZATION COORDINATOR: 02/06/19 1310 [place] [address]
[~2019-01-29 16:55] MED LIST: ALEVE220 MG PO; BREO ELLIPTA 21 EACH; COUMADIN6 MG PO; CRESTOR20 MG PO; DONEPEZIL HCL10 MG PO; IPRAT-ALBUT 0.5-3 ML UPD; LANTUS SQ; LISINOPRIL20 MG PO; MUCINEX600 MG PO; NAPROSYN500 MG PO; NORVASC5 MG PO; SYNTHROID75 MCG PO; TESSALON PERLE100 MG PO; XANAX0.25 MG PO; ZOLOFT100 MG PO
--- NOTE | 2019-01-29 17:10 | NUR ---
RECIEVED PER BED TO ROOM 1112B.ORIENTED TO ROOM AND SURROUNDINGS.CL IN REACH.RT NOTIFIED TO PLACE SPLITTER IN ROOM FOR O2.
[2019-01-29 19:00] VITALS: BP 107/59
[2019-01-29] MEDS ORDERED: COUMADIN6 MG PO (20:20)
[2019-01-29 20:32] VITALS: BP 107/59; BMI 40.2
--- NOTE | 2019-01-29 22:40 | NUR ---
AWAKE AND DOZING AT INTERVALS. RESPIRATIONS UNLABORED WITH O2/2L ON PER NASAL CANNULA. BRUISING NOTED TO LEFT CHEST/BREAST, ABDOMEN AND BACK AREA. PATIENT STATES SHE ROLLED OUT OF BED AT HOME AND INJURED HER RIBS AND THAT WAS WHAT CAUSED THE BRUISING. ALSO NOTED GENERALIZED RASH AND PATIENT STATES SHE DOESNT KNOW WHAT CAUSED THE RASH. WILL HAVE MD ASSESS ON ROUNDS. ORIENTED TO USE OF CALL LIGHT AND FALLS RISK. VOICES UNDERSTANDING. NO ACUTE DISTRESS NOTED.
--- NOTE | 2019-01-30 02:55 | NUR ---
CONTINUES RESTING IN BED WITH RESPIRATIONS UNLABORED. NO DISTRESS NOTED. CALL LIGHT IN REACH.
--- NOTE | 2019-01-30 06:01 | NUR ---
QUIET HOURS. NO CHANGES IN CONDITION THIS SHIFT. RASH REMAINS. RESPIRAITONS UNLABORED. NO DISTRESS NOTED.
[2019-01-30 07:59] LABS: BASOPHILS 0.2 % (0-2); EOSINOPHILS 2.2 % (0-7); HEMATOCRIT 31.1 % (36.0-48.0); HEMOGLOBIN 9.1 g/dL (12-16); IMMATURE GRANULOCYTES 0.4 % (0-5); LYMPHOCYTES 7.6 % (15-50); MCH 28.5 pg (26.0-34.0); MCHC 29.3 g/dL (31.0-37.0); MCV 97.5 fL (80.0-100.0); MONOCYTES 5.1 % (2-11); NEUTROPHILS 84.5 % (40-80); PLATELET COUNT 221 10x3/uL (130-400); RBC 3.19 10x6/uL (4.00-5.40); RDW 16.1 % (11.5-14.5); WBC 13.8 10x3/uL (4.8-10.8)
[2019-01-30 08:00] VITALS: BP 144/51
--- NOTE | 2019-01-30 08:09 | NUR ---
PT SITTING UP IN BED EATING BREAKFAST, DARREL NEEDS. WCTM.
[2019-01-30 08:16] LABS: INR 1.48 (0.85-1.17); PROTIME 17.3 SECONDS (11.6-15.0)
[2019-01-30 08:18] LABS: ANION GAP 8.9 mmol/L (8-16); CALCIUM 8.8 mg/dL (8.5-10.1); CARBON DIOXIDE 26.1 mmol/L (21.0-32.0); CREATININE - SERUM 1.1 mg/dL (0.6-1.3)
[2019-01-30 09:31] VITALS: Ht 165.1 cm; Wt 109.3 kg
--- NOTE | 2019-01-30 10:50 | NUR ---
PATIENT ADMITTED TO REHAB FROM ACUTE . PATIENT HAS JUST MOVED TO [place] FROM [place]. AT DISCHARGE PATIENT AND SPOUSE WOULD LIKE A REFERRAL MADE TO [facility] DUE TO THE FACT [place]. WILL CONTINUE TO FOLLOW WITH PATIENT.
--- NOTE | 2019-01-30 14:03 | RHP ---
PATIENT: BENJAMIN CHAMBERS MEDICAL RECORD: [id number] ACCOUNT: [id number] LOCATION:[facility] : 35 ADMISSION DATE: 01/29/19 REHABILITATION HISTORY AND PHYSICAL EXAMINATION POST ADMISSION PHYSICIAN EXAMINATION DATE OF ADMISSION: 01/29/2019 ADMITTING DIAGNOSES: Right-sided cerebrovascular accident with left body involvement or acute/subacute punctate infarct in the frontal and parietal lobes bilaterally. HISTORY OF PRESENT ILLNESS: The patient is admitted to inpatient rehabilitation for acute/subacute punctate infarcts in the frontal and parietal lobes bilaterally. She is an 83-year-old obese female who presented to ED with complaints of multiple falls, generalized weakness and pain to her shoulder. Spouse reported in the ED that the patient fell from bed approximately 6 days prior to the ED visit and not been doing well since. I called EMS a few days prior to acute hospital and was found to be hypotensive, so her was holding her blood pressure medicines. PAST MEDICAL HISTORY: Significant for diabetes, hypertension, arthritis, depression, tobacco use and frequent falls. The patient was admitted to the acute patient rehab for further workup, was found to have multiple medical complications to include acute CVA, rib fractures or pleural effusion, pneumonia, anemia requiring blood transfusions, acute critical illness myopathy and acute dehydration. She had been followed and had a thorough medical workup during her stay. She is currently on telemetry, new-onset AFib. She has got pleural effusion. She has had a thoracentesis with over 1200 cc removed on 01/28/2019. She has got dyspnea on exertion, acute hypoxia, deconditioning, proximal muscle weakness. She is a high fall risk, impaired mobility, and self-care deficit. These are all barriers to her discharge home safely at this time. She and her recently moved to [place]. She was independent with her mobility and ADLs prior to this. She and her hope for her to return home as close to her prior level of functioning as possible and get home health set up after her stay here in acute rehab. COMORBIDITIES: Acute critical illness myopathy, morbid obesity, falls at home, peripneumonic effusion, acute kidney injury, dehydration, normocytic anemia, left pleural effusion, acute rib fractures, generalized weakness, hyperkalemia, hypotension, arthritis, depression, former tobacco use, postmenopausal, iron-deficient anemia, dyspnea with exertion and hypoxia. PAST MEDICAL HISTORY: Significant for glasses, hearing aids, diabetes, thyroid problems, hypertension, urinary incontinence, arthritis, bilateral knee replacements, bruises, menopause and depression. PAST SURGICAL HISTORY: Includes bilateral knee replacement. ALLERGIES: LYRICA. CURRENT MEDICATIONS: Include Coumadin 6 mg daily, Zoloft 100 mg daily, Crestor 20 mg daily, lisinopril 20 mg daily, Synthroid 75 mcg daily. She is on Lantus 20 units daily. She is on a glucose replacement protocol p.r.n. low blood sugar. She is on DuoNeb updrafts q.i.d. She is on Mucinex 1200 mg b.i.d., HISTORY AND PHYSICAL [id number] BENJAMIN CHAMBERS Casi Aricept 10 mg at bedtime and Tessalon Perles 100 mg t.i.d. p.r.n. HABITS: She does have a history of tobacco use. FAMILY HISTORY: Noncontributory. SOCIAL HISTORY: The patient hopes to return back home and get back to her prior level of functioning. REVIEW OF SYSTEMS: GENERAL: Does complain of weakness and fatigue. HEENT: Denies cold, cough, or congestion. CARDIOVASCULAR: Denies chest pain. PHYSICAL EXAMINATION: VITAL SIGNS: Stable, afebrile. GENERAL: A morbidly obese female, in no distress, alert upon exam. HEENT: Normocephalic and atraumatic. Mucosa moist. NECK: Supple. No lymphadenopathy. LUNGS: Clear at this time. No wheezing or rales. HEART: Irregular rate and rhythm. No murmurs, rubs, or gallops. ABDOMEN: Benign. EXTREMITIES: No clubbing, cyanosis or edema. NEUROLOGIC: She does have some noted proximal muscle weakness, may be more weakness on the left compared to right. LABORATORY DATA: White count is 13.8, H&H of 9.1 and 31.1 and platelet count was noted to be 221. INR is 1.48, potassium is 4.0, sodium 144, BUN and creatinine of 38 and 1.1 and blood sugar is noted to be 104. ASSESSMENT: This is an 83-year-old female patient admitted to the rehab with a working diagnosis of cerebrovascular accident. The patient has potential to make improvement. We instituted the following multidisciplinary therapies including, but not limited to physical, occupational, respiratory, speech, nutritional services, prosthetics and orthotics. Given her complex medical condition and risk for more complications, rehabilitation services cannot be provided at a low level of care such a [facility] facility. PLAN: 1. Admit to [facility] for intensive inpatient therapy to include the following disciplines: A. Physical therapy to improve gait, all transfer skills and bed mobility to a modified independent level. B. Occupational therapy to a modified independent level. C. Case management to assist with discharge planning and placement options. D. Nutrition to assist with nutritional needs. E. Rehabilitation nursing to assist in monitoring the patient's underlying medical condition and to assist with any type of bowel or bladder management. 2. The patient's current medication and medical care will be continued. 3. The patient will be placed on standard fall precautions. 4. The patient's estimated length of stay is approximately 7-10 days. 5. We will discuss the patient during care team staff meeting this week. TRANSINT:[id number] Voice Confirmation ID: [id number] DOCUMENT ID: [id number] HISTORY AND PHYSICAL [id number] BENJAMIN CHAMBERS notes whether there has been none or any medical/functional change since admission: - No change since pre-admission screen. KARLOS attests patient continues to be appropriate for IRF: - Continues to be appropriate. LEXA MOSS MD at 1403 CC: [id number] DICTATION DATE: 01/30/19822 ROLL FORGER: 01/30/19 1025 ADM IN [facility] [address] [place] [address]
--- NOTE | 2019-01-30 16:29 | NUR ---
CARE TEAM MEETING: PATIENT IS NEW TO UNIT AND WILL BE RA AT NEXT MEETING. WILL CONTINUE TO FOLLOW WITH PATIENT
[2019-01-30 19:00] VITALS: BP 148/52
--- NOTE | 2019-01-30 20:15 | NUR ---
PT'S FSBS IS 98, BED TIME SNACKS APPLE SAUCES AND [place] CRACKERS GIVEN, CALL LIGHT IN REACH.
--- NOTE | 2019-01-30 22:35 | NUR ---
PT C/O PAIN IN BACK, CALLED DOCTOR SALLY AND DOCTOR SALLY ORDERED TRAMADOL 50MG Q6HP FOR PT.
--- NOTE | 2019-01-30 22:48 | NUR ---
PT IS SLEEPING AND WILL NOT WAKE PT UP FOR HER PAIN MED.
--- NOTE | 2019-01-31 00:45 | NUR ---
PT C/O BACK PAIN AT A LEVEL OF 5, TRAMADOL 50MG ADMINISTERED ORDERED.
--- NOTE | 2019-01-31 03:19 | NUR ---
PT IN BED EYES CLOSED, BREATHING EVEN AND UNLABORED, NO NEEDS NOTED, FLUIDS AND CALL LIGHT WITHIN REACH
[2019-01-31 07:21] LABS: INR 1.61 (0.85-1.17); PROTIME 18.6 SECONDS (11.6-15.0)
[2019-01-31 08:00] VITALS: BP 104/43
--- NOTE | 2019-01-31 09:30 | NUR ---
PT AM MEDS ADMINISTERED. DR NOTIFIED OF WORSENING RASH. WCTRUDY.
[2019-01-31 16:13] LABS: APPEARANCE CLEAR (CLEAR); BILIRUBIN NEGATIVE (NEGATIVE); COLOR YELLOW (YELLOW); GLUCOSE NEGATIVE (NEGATIVE); KETONE NEGATIVE (NEGATIVE); NITRITE NEGATIVE (NEGATIVE); PROTEIN NEGATIVE (NEGATIVE); SPECIFIC GRAVITY 1.015 (1.005-1.020); UROBILINOGEN NORMAL (NORMAL)
[2019-01-31 19:00] VITALS: BP 120/42
--- NOTE | 2019-01-31 22:24 | NUR ---
PT IN BED LOWEST POSITION, EYES CLOSED, AROUSES EASILY TO VOICE, BREATHING EVEN AND UNLABORED, NO NEEDS NOTED, FLUIDS AND CALL LIGHT WITHIN REACH
--- NOTE | 2019-02-01 04:10 | NUR ---
PT IN BED LOWEST POSITION, EYES CLOSED, AROUSES EASILY TO VOICE, BREATHING EVEN AND UNLABORED, FLUIDS AND CALL LIGHT WITHIN REACH
[2019-02-01 07:45] LABS: BASOPHILS 0.1 % (0-2); EOSINOPHILS 0.1 % (0-7); HEMATOCRIT 30.5 % (36.0-48.0); HEMOGLOBIN 9.1 g/dL (12-16); IMMATURE GRANULOCYTES 0.5 % (0-5); LYMPHOCYTES 4.8 % (15-50); MCH 28.9 pg (26.0-34.0); MCHC 29.8 g/dL (31.0-37.0); MCV 96.8 fL (80.0-100.0); MEAN PLATELET VOLUME 9.3 fL (7.4-10.4); MONOCYTES 2.8 % (2-11); NEUTROPHILS 91.7 % (40-80); PLATELET COUNT 257 10x3/uL (130-400); RBC 3.15 10x6/uL (4.00-5.40); RDW 16.2 % (11.5-14.5)
[2019-02-01 07:52] LABS: ANION GAP 14.8 mmol/L (8-16); CALCIUM 8.6 mg/dL (8.5-10.1); CARBON DIOXIDE 22.6 mmol/L (21.0-32.0); POTASSIUM - SERUM 4.4 mmol/L (3.5-5.1)
[2019-02-01 07:54] LABS: WBC 19.7 10x3/uL (4.8-10.8)
[2019-02-01 07:58] LABS: CREATININE - SERUM 1.4 mg/dL (0.6-1.3)
[2019-02-01 08:02] VITALS: BP 100/40
[2019-02-01 08:04] LABS: INR 1.68 (0.85-1.17); PROTIME 19.2 SECONDS (11.6-15.0)
--- NOTE | 2019-02-01 09:20 | NUR ---
PT AM MEDS ADMINISTERED. PT DARREL CARLTON. GREG.
--- NOTE | 2019-02-01 17:07 | NUR ---
CONSULT FOR DERMATOLOGY PLACED EARLIER TODAY. CALLED DR FAITH'S OFFICE AND WAS TOLD THAT HE WAS FAST FOOD SUPERVISOR AND WAS GIVEN A CELL PHONE NUMBER TO CALL [phone]. ATTEMPTED TO CALL THREE TIMES THROUGHOUT THE AFTERNOON. UNABLE TO LEAVE VOICEMAIL DUE TO VOICEMAIL BEING FULL.
--- NOTE | 2019-02-01 18:00 | NUR ---
PT EATING DINNER, DENIES NEEDS. WCTM.
--- NOTE | 2019-02-01 19:24 | NUR ---
AWAKE AND ALERT. PLAYING CARDS WITH VISITORS. RESPIRATIONS UNLABORED. O2/2L ON PER NASAL CANNULA. RED RAISED RASH NOTED TO GENERALZIED BODY WITH SKIN PEELING IN AREAS. IS ON MEDROL DOSE PACK. NO ACUTE DISTRESS NOTED.
[2019-02-01 20:06] VITALS: BP 106/36
--- NOTE | 2019-02-02 01:26 | NUR ---
RESTING IN BED WITH RESPRIATIONS UNLABORED. O2/2L ON PER NASAL CANNULA. NO ACUTE DISTRESS NOTED.
--- NOTE | 2019-02-02 05:36 | NUR ---
QUIET HOURS. NO ACUTE CHANGES IN CONDITION THIS SHIFT. NO ACUTE DISTRESS NOTED.
[2019-02-02 06:38] LABS: INR 1.79 (0.85-1.17); PROTIME 20.2 SECONDS (11.6-15.0)
[2019-02-02 08:00] VITALS: BP 97/33
--- NOTE | 2019-02-02 08:00 | NUR ---
SHIFT ASSMT COMPLETED.BREAKFAST GIVEN.TAKEN TO BATHROOM.CL IN REACH.RED RASH REMAINS BUT APPEARS SLIGHTLY BETTER.
--- NOTE | 2019-02-02 12:00 | NUR ---
SITTING UP EATING LUNCH.CL IN REACH.
--- NOTE | 2019-02-02 19:16 | NUR ---
PATIENT IS RESTING IN HER BED. SHE DENIES ANY NEEDS AT THIS TIME. HER BED IS DOWN LOW WITH SIDE RAILS UP X2. CALL LIGHT IS IN REACH.
[2019-02-02 20:00] VITALS: BP 139/34
--- NOTE | 2019-02-03 00:06 | NUR ---
PATIENT IS SLEEPING. BED IS DOWN LOW WITH SIDE RAILS UP X2. CALL LIGHT IS IN REACH.
[2019-02-03 07:01] LABS: INR 2.31 (0.85-1.17); PROTIME 24.7 SECONDS (11.6-15.0)
[2019-02-03 08:00] VITALS: BP 115/50
--- NOTE | 2019-02-03 08:00 | NUR ---
SHIFT ASSMT COMPLETED.BREAKFAST GIVEN.CL IN REACH.OFF O2.WILFREDO WELL.
--- NOTE | 2019-02-03 09:00 | NUR ---
INCONT OF BM.TAKEN TO BATHROOM.ENC TO WIPE SELF.CLEANED REMAINING AREA WITH TOWELETTES.RETURNED TO .
--- NOTE | 2019-02-03 09:15 | NUR ---
FAMILY HERE TO TAKE TO RECORDED [employer] IN LOBBY/WC.
--- NOTE | 2019-02-03 17:30 | NUR ---
SHOWER TAKEN.RED RASH ALL OVER AND SOME SKIN WITH FLUID FILLED BLISTERS THE REST HAS LARGE AREAS OF SKIN SLOUGHING.WILL DC TELEMETRY.
--- NOTE | 2019-02-03 19:46 | NUR ---
AWAKE AND ALERT. RESPIRATIONS UNLABORED. SITTING IN WHEELCHAIR AND REQUEST TO GO TO BED. ASSISTED TO BED. NOTED GENERALIZED RED RAISED RASH. BEING TREATED WITH MEDROL DOSE PACK AND CREAM TO SKIN. O2/2L ON PER NASAL CANNULA. NO ACUTE DISTRESS NOTED.
[2019-02-03 21:37] VITALS: BP 112/49
--- NOTE | 2019-02-04 00:33 | NUR ---
RESTING IN BED WITH EYES CLOSED AND RESPIRATIOSN UNLABORED. NO DISTRESS NOTED. CALL LIGHT IN REACH.
--- NOTE | 2019-02-04 06:05 | NUR ---
RESTING IN BED. RESPIRAITONS UNLABORED. REDNESS/RASH SLIGHTLY IMPROVED. NO ACUTE DISTRESS NOTED. CALL LIGHT IN REACH.
[2019-02-04 06:31] LABS: BASOPHILS 0.1 % (0-2); EOSINOPHILS 0.5 % (0-7); HEMATOCRIT 30.1 % (36.0-48.0); HEMOGLOBIN 9.1 g/dL (12-16); IMMATURE GRANULOCYTES 0.6 % (0-5); LYMPHOCYTES 5.7 % (15-50); MCH 28.9 pg (26.0-34.0); MCHC 30.2 g/dL (31.0-37.0); MCV 95.6 fL (80.0-100.0); MONOCYTES 3.5 % (2-11); NEUTROPHILS 89.6 % (40-80); PLATELET COUNT 235 10x3/uL (130-400); RBC 3.15 10x6/uL (4.00-5.40); RDW 15.9 % (11.5-14.5)
[2019-02-04 06:38] LABS: CALCIUM 8.7 mg/dL (8.5-10.1); CARBON DIOXIDE 23.6 mmol/L (21.0-32.0); CREATININE - SERUM 1.3 mg/dL (0.6-1.3); POTASSIUM - SERUM 4.6 mmol/L (3.5-5.1)
[2019-02-04 06:46] LABS: INR 4.34 (0.85-1.17); PROTIME 40.7 SECONDS (11.6-15.0)
--- NOTE | 2019-02-04 07:20 | NUR ---
ALERT AND ORIENTED. NO C/O PAIN. CL IN REACH. RESP EVEN AND UNLABORED.
[2019-02-04 08:06] VITALS: BP 111/32
--- NOTE | 2019-02-04 13:04 | NUR ---
B LE WEEPING EDEMA. LEGS WRAPPED WITH KYLAH. SITTING IN WC. CL IN REACH.
--- NOTE | 2019-02-04 16:06 | NUR ---
CLINICAL UPDATES FAXED TO DUARTE BUCK RN WITH [facility], FAXED TO , AUTH. # [id number], ID # [id number], WITH CONFORMATION RECIEVED
--- NOTE | 2019-02-04 16:39 | NUR ---
NO CHANGE IN ASSESSMENT. FAMILY AT BS. CL IN REACH.
--- NOTE | 2019-02-04 18:38 | NUR ---
RENÉ FEET ELEVATED ON PILLOW. MESSAGE LEFT FOR DR MOSS RE: RENÉ LE WEEPING EDEMA.
--- NOTE | 2019-02-04 18:49 | NUR ---
AWAKE AND ALERT. RESTING IN BED. RESPIRATIONS UNLABORED. CONTINUES TO HAVE GENERALIZED RAISED RASH. NOTED 2+ EDEMA WITH WEEPING NOTED IN BLE'S. NO CURRENT C/O PAIN OR DISCOMFORT. CALL LIGHT IN REACH.
[2019-02-04 19:00] VITALS: BP 129/35
--- NOTE | 2019-02-05 00:22 | NUR ---
RESTING IN BED WITH EYES CLOSED AND RESPIRATIONS UNLABORED. NO ACUTE DISTRESS NOTED. CALL LIGHT IN REACH.
--- NOTE | 2019-02-05 05:11 | NUR ---
RESTING IN BED. CONTINUES TO HAVE RASH WITH HIVES AND SLOUGHING SKIN. RESPIRATIONS UNLABORED AT REST. O2/2L ON PER NASAL CANNULA. NO CURRENT DISTRESS NOTED. CALL LIGHT IN REACH.
[2019-02-05 07:00] LABS: INR 4.01 (0.85-1.17); PROTIME 38.3 SECONDS (11.6-15.0)
[2019-02-05 08:00] VITALS: BP 107/45
--- NOTE | 2019-02-05 10:31 | NUR ---
THE PATIENT WAS AWAKE AND TALKING TO STAFF WHEN STAFF ENTERED HER ROOM. BED IS IN THE LO WPOSITION WITH SIDERAILS X2 AND CALL LIGHT WITHIN REACH. THE PATIENT DEMONSTRATES APPROPRIATE USE OF A CALL LIGHT. THE PATIENT HAS NO QUESTIONS OR CONCERNS AT THIS TIME.
[2019-02-05 19:01] VITALS: BP 162/47
--- NOTE | 2019-02-05 20:00 | NUR ---
PATIENT RECEIVED SITTING UP IN BED WATCHING TV. VITAL SIGNS & ASSESSMENT DONE. PATIENT HAD NO C/O PAIN OR DISTRESS AT THIS TIME. PATIENT ABLE TO VOICE HER NEEDS & USE CALL LIGHT WITHIN REACH. ALARM ON. WILL CONTINUE TO MONITOR.
--- NOTE | 2019-02-05 23:29 | NUR ---
PATIENT EYES CLOSED. RESPIRATIONS 18 & EVEN. BENADRYL EFFECTIVE FOR ITCHING. BED LOW. BEDSIDE TABLE & CALL LIGHT WITHIN REACH. ALARM ON. WILL CONTINUE TO MONITOR.
--- NOTE | 2019-02-06 03:40 | NUR ---
PATIENT EYES CLOSED. RESPIRATIONS 18 & EVEN. BED LOW. CALL LIGHT WITHIN REACH. WILL CONTINUE TO MONITOR.
--- NOTE | 2019-02-06 04:44 | NUR ---
I AGREE WITH WINDOWS SUPPORT ENGINEER ASSESSMENT
[2019-02-06 07:04] LABS: INR 3.73 (0.85-1.17); PROTIME 36.1 SECONDS (11.6-15.0)
[2019-02-06 07:45] VITALS: BP 120/85
--- NOTE | 2019-02-06 07:54 | NUR ---
ALERT AND ORINTED. EATING BREAKFAST. NO DISTRESS NOTED. CL IN REACH.
--- NOTE | 2019-02-06 08:50 | NUR ---
Nutrition follow up: Diabetic diet with 50% average po intake Last BM 02/04 per chart Pt reports she does not eat much at home and isnt quite eating as well as home but she doesnt feel like she is eating poorly Encouraged good po intake to help optimize progress in therapy Add Glucerna to lunch today and pt to order on trays as needed RD following
--- NOTE | 2019-02-06 13:49 | NUR ---
PATIENT DOWN IN REHAB ROOM. WORKING WITH PHYSICAL THERAPIST. DENIES ANY PAIN/DISC AT THIS TIME.
--- NOTE | 2019-02-06 15:19 | NUR ---
CARE TEAM MEETING: PATIENT SPOUSE AND DAUGHTER ATTENDED MEETING. THEIR QUESTIONS AND CONCERNS WERE ADDRESSED. TENATIVE DISCHARGE DATE IS 02/16/19. WILL CONTINUE TO FOLLOW WITH PATIENT AND WILL ASSIST WITH NEEDS.
--- NOTE | 2019-02-06 15:51 | NUR ---
PRN PAIN MEDICATION GIVEN PER PATIENT REQUEST FOR ALL OVER PAIN/DISC
[2019-02-06 19:00] VITALS: BP 124/36
--- NOTE | 2019-02-06 19:45 | NUR ---
PT INCONTINENT, CLEAN SATHISH AREA, CHANGED LINEN. CALL LIGHT IN REACH.
--- NOTE | 2019-02-07 02:32 | NUR ---
PT IN BED LOW POSITION, EYES CLOSED AROUSES EASILY TO VOICE, BREATHING EVEN AND UNLABORED, NO NEEDS NOTED, FLUIDS AND CALL LIGHT WITHIN REACH.
--- NOTE | 2019-02-07 02:37 | NUR ---
I AGREE WITH THIS JIG BORE TOOL MAKER'S ASSESSMENT.
--- NOTE | 2019-02-07 03:30 | NUR ---
ASSISTED PT WITH FLASH SCHMID.
--- NOTE | 2019-02-07 07:05 | NUR ---
RECEIVED REPORT. LYING IN BED SUPINE HOB 30 DEGREES ALERT AND ORIENTED X4. DENIES ANY NEEDS OR PAIN. RR EVEN AND UNLABORED. CHANGED BLUE PADS ON BED D/T LEGS WEEPING. PEELING RED RASH ALL OVER BODY. CALL LIGHT WITHIN REACH, FALL PRECAUTIONS IN PLACE. WILL CONTINUE TO MONITOR
[2019-02-07 07:23] LABS: INR 3.79 (0.85-1.17); PROTIME 36.5 SECONDS (11.6-15.0)
[2019-02-07 08:21] VITALS: BP 127/60
--- NOTE | 2019-02-07 12:45 | NUR ---
SITTING UP IN WC.
--- NOTE | 2019-02-07 12:45 | NUR ---
EATING LUNCH.CL IN REACH.
--- NOTE | 2019-02-07 13:39 | NUR ---
SITTING UP IN W/C WATCHING TV. DENIES ANY NEEDS OR PAIN. NO SIGNS OF DISTRESS NOTED. CALL LIGHT WITHIN REACH, FALL PRECAUTIONS IN PLACE. WILL CONTINUE TO MONITOR
--- NOTE | 2019-02-07 18:01 | NUR ---
SITTING UP IN BED EATING DINNER. FAMILY AT BEDSIDE NOTED. DENIES ANY NEEDS OR PAIN. NO SIGNS OF DISTRESS NOTED. CALL LIGHT WITHIN REACH, FALL PRECAUTIONS IN PLACE. WILL CONTINUE TO MONITOR
[2019-02-07 19:00] VITALS: BP 131/43
--- NOTE | 2019-02-07 19:41 | NUR ---
AWAKE AND ALERT. RESTING IN BED. RESPIRATIONS UNLABORED. TALKING WITH VISITORS. CONTINUES TO HAVE GENERALIZED RASH TO BODY BUT NOTED DECREASE IN REDNESS AND BLISTERS SINCE STARTING CURRENT DRUG REGIMEN. NO ACUTE DISTRESS NOTED. CALL LIGHT IN REACH.
--- NOTE | 2019-02-08 00:03 | NUR ---
RESTING IN BED WITH EYES CLOSED AND RESPIRATIONS UNLABORED. NO DISTRESS NOTED. CALL LIGHT IN REACH.
--- NOTE | 2019-02-08 05:04 | NUR ---
QUIET HOURS. REPOSITIONED FOR COMFORT. NO ACUTE CHANGES IN CONDITION THIS SHIFT. NO DISTRESS NOTED. CALL LIGHT IN REACH.
[2019-02-08 08:00] VITALS: BP 135/43
--- NOTE | 2019-02-08 08:18 | NUR ---
PT RESTING IN BED WITH EYES OPEN CALL LIGHT IN REACH WILL MONITER
[2019-02-08 08:25] LABS: INR 3.29 (0.85-1.17); PROTIME 32.7 SECONDS (11.6-15.0)
--- NOTE | 2019-02-08 17:59 | NUR ---
PT RESTING IN BED WITH EYES OPEN CALL LIGHT IN REACH WILL MONITER
[2019-02-08 19:00] VITALS: BP 123/63
--- NOTE | 2019-02-08 19:15 | NUR ---
GREETED PATIENT AND INTRODUCED MYSELF HER NURSE. PATIENT IS LAYING IN BED IN SUPINE POSITION. DENIES ANY PAIN AT THIS TIME. JUST STATES THAT HER LEGS ARE FEELING COLD FROM THE WEEPING IN LOWER BILATERAL EXTREMITIES. DENIES ANY FURTHER NEEDS AT THIS TIME. CALL LIGHT IN REACH.
--- NOTE | 2019-02-08 21:25 | NUR ---
REMOVED EXISTING STOCKINETEE MATERIALS FROM BILATERAL LEGS AND REPLACED WITH BLUE PADS AND CLEAN STOCKINETTES TO HELP WITH WEEPING. PATIENT TOLERATED PROCEDURE. CALL LIGHT IN REACH.
--- NOTE | 2019-02-09 02:04 | NUR ---
PATIENT RESTING QUIETLY LAYING IN SUPINE POSITION. HOB AT 30 DEGREES. RESPIRATIONS EVEN. NO S/S OF DISTRESS. SR UP X 2. BED IN LOWEST POSITION. CALL LIGHT IN REACH.
[2019-02-09 05:48] LABS: INR 2.4 (0.85-1.17); PROTIME 25.4 SECONDS (11.6-15.0)
--- NOTE | 2019-02-09 07:27 | NUR ---
PATIENT RESTING IN BED. EYES CLOESED. CALL LIGHT WITHIN REACH. WILL CONTINUE WITH PLAN OF CARE
[2019-02-09 08:00] VITALS: BP 114/47
--- NOTE | 2019-02-09 09:20 | NUR ---
PATIENT SITTING UP IN BED EATTING BREAKFAST. CALL LIGHT WITHIN REACH. VOICES NO NEEDS AT THIS TIME.
--- NOTE | 2019-02-09 11:33 | NUR ---
PATIENT HELPED WITH SHOWER BY THIS NURSE. PATIENT UNABLE TO WASH OR DRY BACK OR BOTTOM BY SELF. DRESSING CHANGED TO BILATERAL LEGS AFTER SHOWER. LINENS ON BED CLEANED
--- NOTE | 2019-02-09 12:05 | NUR ---
GLUCOSE LEVEL 117. NO SLIDING SCALE INSULIN GIVEN
[2019-02-09 19:02] VITALS: BP 130/59
--- NOTE | 2019-02-09 19:02 | NUR ---
GREETED PATIENT AND INTRODUCED MYSELF. PATIENTS VITAL SIGNS OBTAINED. DENIES ANY NEEDS AT THIS TIME. CALL LIGHT IN REACH.
--- NOTE | 2019-02-09 19:38 | NUR ---
PATIENT CLEANED OF INCONTINENT URINE. COMPLETE LINEN CHANGE.
--- NOTE | 2019-02-09 21:19 | NUR ---
REMOVED DRESSINGS ON BILATERAL LOWER EXTREMITIES. REPLACED WITH ABD PADS AND COVERED WITH BLUE PADS AND STOCKINEETE MATERIAL TO HELP WITH WEEPING DRAINAGE. PATIENT TOLERATED PROCEDURE. CALL LIGHT IN REACH.
--- NOTE | 2019-02-09 23:28 | NUR ---
PATIENT AWAKE AND WATCHING TV. REQUESTED PRN BENADRYL AND ULTRAM. CALL LIGHT IN REACH.
--- NOTE | 2019-02-10 04:33 | NUR ---
PATIENT RESTING QUIETLY WITH EYES CLOSED LAYING IN SUPINE POSITION. HOB AT 30 DEGREES, RESPIRATIONS EVEN AND UNLABORED. SR UP X 2. BED IN LOWEST POSITION. CALL LIGHT IN REACH.
--- NOTE | 2019-02-10 07:29 | NUR ---
PATIENT RESTING IN BED. PLAYING A GAME ON HER CELL PHONE. CALL LIGHT WITHIN REACH. VOICES NO NEEDS AT THIS TIME. WILL CONTINUE WITH PLAN OF CARE
[2019-02-10 08:31] VITALS: BP 116/57
[2019-02-10 10:39] LABS: INR 1.93 (0.85-1.17); PROTIME 21.4 SECONDS (11.6-15.0)
--- NOTE | 2019-02-10 10:58 | NUR ---
PATIENT HELPED INTO BATHROOM. INC OF BOWEL AND BLADDER. PATIENT TRANSFERS FROM BED TO WHEELCHAIR WITH STAND BY ASST. PATIENT UNABLE TO REACH DOWN AND REMOVE BRIEFS, OR PUT ON NEW BRIEFS AND PULL THEM UP. PATIENT UNABLE TO SELF OR DO ANY SATHISH CARE
--- NOTE | 2019-02-10 11:15 | NUR ---
BILATERAL LEGS HAVE 3 PULSE EDEMA. WEEPING FROM BOTH LEGS. DRESSING CHANGED BILATERAL
--- NOTE | 2019-02-10 15:06 | NUR ---
FAMILY INTO VISIT PATIENT. PATIENT IN WHEELCHAIR. TOOK PATIENT OFF UNIT.
--- NOTE | 2019-02-10 21:14 | NUR ---
PATIENT RESTING IN BED AT START OF SHIFT. ASSISTED UP TO BATHROOM WITH STAND BY ASSIST. CHANGED BED LINENS WHILE IN BATHROOM DUE TO LEGS WEEPING AND STAINING SHEETS. BS AT 21:00 164. HELD INSULIN DUE TO PATIENT'S BLOOD SUGAR DROPPING IN THE MORNING. RESTING QUIETLY AT THIS TIME. WILL CONTINUE TO MONITOR. CALL LIGHT WITHIN REACH.
[2019-02-10 21:39] VITALS: BP 134/61
[2019-02-11 06:59] LABS: BASOPHILS 0 % (0-2); EOSINOPHILS 0.4 % (0-7); HEMATOCRIT 29.2 % (36.0-48.0); IMMATURE GRANULOCYTES 1.8 % (0-5); LYMPHOCYTES 13.4 % (15-50); MCH 28.8 pg (26.0-34.0); MCHC 30.8 g/dL (31.0-37.0); MCV 93.6 fL (80.0-100.0); MEAN PLATELET VOLUME 9.1 fL (7.4-10.4); MONOCYTES 7.6 % (2-11); NEUTROPHILS 76.8 % (40-80); PLATELET COUNT 272 10x3/uL (130-400); RBC 3.12 10x6/uL (4.00-5.40); RDW 15.7 % (11.5-14.5); WBC 9.8 10x3/uL (4.8-10.8)
[2019-02-11 07:34] LABS: CALCIUM 8.3 mg/dL (8.5-10.1); CARBON DIOXIDE 25.1 mmol/L (21.0-32.0); CREATININE - SERUM 1.2 mg/dL (0.6-1.3); POTASSIUM - SERUM 4.1 mmol/L (3.5-5.1)
[2019-02-11 08:00] VITALS: BP 135/51
--- NOTE | 2019-02-11 09:20 | NUR ---
PT AM MEDS ADMINISTERED. PT DENIES NEEDS. WCTM.
[2019-02-11 11:58] LABS: INR 1.9 (0.85-1.17); PROTIME 21.1 SECONDS (11.6-15.0)
[2019-02-11 19:00] VITALS: BP 119/54
--- NOTE | 2019-02-11 20:05 | NUR ---
AWAKE AND ALERT. SITTING IN WHEELCHAIR BUT REQUESTED TO GO TO BED. ASSISTED TO BED AFTER GOING TO BATHROOM. CONTINUES TO HAVE GENERALIZED REDNESS AND SMALL PATCHES OF RASH WITH NOTED SKIN PEELING BUT IT IS IMPROVING. RESPIRATIONS UNLABORED. NO DISTRESS NOTED. CALL LIGHT IN REACH.
--- NOTE | 2019-02-12 02:11 | NUR ---
RESTING IN BED WITH EYES CLOSED AND RESPIRATIONS UNLABORED. NO DISTRESS NOTED. CALL LIGHT IN REACH.
--- NOTE | 2019-02-12 05:22 | NUR ---
QUIET HOURS. RESTING IN BED. NO ACUTE DISTRESS NOTED. CALL LIGHT IN REACH.
[2019-02-12 07:16] LABS: INR 1.74 (0.85-1.17); PROTIME 19.7 SECONDS (11.6-15.0)
--- NOTE | 2019-02-12 07:18 | NUR ---
RESTING, NO DISTRESS NOTED. RESP EVEN AND UNLABORED. CL IN REACH.
[2019-02-12 08:00] VITALS: BP 133/67
--- NOTE | 2019-02-12 13:45 | NUR ---
PARTICIPATING IN THERAPY WO C\O PAIN.
--- NOTE | 2019-02-12 16:24 | NUR ---
NO CHANGE IN ASSESSMENT. IN THERAPY AT THIS TIME.
[2019-02-12 19:00] VITALS: BP 149/65
--- NOTE | 2019-02-12 19:54 | NUR ---
PATIENT RECEIVED LAYING IN BED WATCHING TV. ASSESSMENT & VITAL SIGNS DONE. PATIENT RED RASH DECREASED. PATIENT HAS HAD NO C/O PAIN OR ITCHING. BED LOW. CALL LIGHT WITHIN REACH. WILL CONTINUE TO MONITOR.
--- NOTE | 2019-02-13 01:16 | NUR ---
PATIENT EYES CLOSED. RESPIRATIONS 18 & EVEN. BED LOW. ALARM ON. CALL LIGHT WITHIN REACH. WILL CONTINUE TO MONITOR.
--- NOTE | 2019-02-13 02:25 | NUR ---
AWAKE AND RESTING IN BED WITH NO DISTRESS NOTED. RECENTLY ASSISTED TO BATHROOM. NO DISTRESS NOTED. CALL LIGHT IN REACH.
--- NOTE | 2019-02-13 02:27 | NUR ---
PATIENT C/O SHORTNESS OF BREATHE & WHEEZING UPON GOING TO TOILET. RESPIRATORY CALLED & PATIENT IS NOW ON PRN DUONEB.
--- NOTE | 2019-02-13 02:38 | NUR ---
PATIENT OFF DUONEB UPDRAFT. SHORTNESS OF BREATH "BETTER." CALL LIGHT WITHIN REACH. WILL CONTINUE TO MONITOR.
--- NOTE | 2019-02-13 03:52 | NUR ---
PATIENT EYES CLOSED. RESPIRATIONS 18 & EVEN. BED LOW. ALARM ON. CALL LIGHT WITHIN REACH. WILL CONTINUE TO MONITOR.
--- NOTE | 2019-02-13 06:14 | NUR ---
PATIENT REFUSED SNACK AFTER FSBS 100. CALL LIGHT WITHIN REACH. WILL CONTINUE TO MONITOR.
[2019-02-13 06:46] LABS: BASOPHILS 0.1 % (0-2); EOSINOPHILS 0.5 % (0-7); HEMATOCRIT 31.7 % (36.0-48.0); HEMOGLOBIN 9.7 g/dL (12-16); IMMATURE GRANULOCYTES 0.8 % (0-5); LYMPHOCYTES 9.6 % (15-50); MCH 28.7 pg (26.0-34.0); MCHC 30.6 g/dL (31.0-37.0); MCV 93.8 fL (80.0-100.0); MONOCYTES 6.1 % (2-11); NEUTROPHILS 82.9 % (40-80); PLATELET COUNT 278 10x3/uL (130-400); RBC 3.38 10x6/uL (4.00-5.40); RDW 15.4 % (11.5-14.5); WBC 10.8 10x3/uL (4.8-10.8)
[2019-02-13 06:51] LABS: ANION GAP 12.8 mmol/L (8-16); CALCIUM 8.3 mg/dL (8.5-10.1); POTASSIUM - SERUM 3.8 mmol/L (3.5-5.1)
[2019-02-13 06:59] LABS: INR 1.79 (0.85-1.17); PROTIME 20.1 SECONDS (11.6-15.0)
--- NOTE | 2019-02-13 07:15 | NUR ---
RESTING WO DISTRESS. RESP EVEN AND UNLABORED. NO C/O PAIN. CL IN REACH.
[2019-02-13 08:00] VITALS: BP 133/59
--- NOTE | 2019-02-13 10:33 | NUR ---
PARTICIPATING IN THERAPY TODAY. NO C/O PAIN AT THIS TIME.
--- NOTE | 2019-02-13 13:29 | NUR ---
Nutrition follow up: Diabetic diet with 67% average po intake Pt reports eating well Pt is interested in diabetic teaching Will follow up with education
--- NOTE | 2019-02-13 14:05 | NUR ---
SHOWER GIVEN TODAY PER NURSING.
--- NOTE | 2019-02-13 15:22 | NUR ---
Diabetes Education per pt requests Pt educated on which foods have carbohydrates Pt educated on non-carbohydrate food sources Encouraged three meals per day with 45gm CHO each meal Discussed meal planning and nutrition label Provided booklet for carbohydrate counting and sample meal plan RD following
--- NOTE | 2019-02-13 16:21 | NUR ---
RESTING WITH RESP EVEN AND UNLABORED. JUST BACK FROM CXR. CL IN REACH.
[2019-02-13 19:00] VITALS: BP 140/54
--- NOTE | 2019-02-13 19:44 | NUR ---
PATIENT RECEIVED SITTING UP IN BED WATCHING TV. PATIENT ASSESSMENT & VITAL SIGNS DONE. PATIENT HAD NO C/O PAIN OR DISTRESS. PATIENT BED LOW. ALARM ON. CALL LIGHT & TABLE WITHIN REACH. WILL CONTINUE TO MONITOR.
--- NOTE | 2019-02-14 00:01 | NUR ---
PATIENT USED CALL LIGHT FOR ASSIST. PATIENT ASSIST INTO WHEELCHAIR. PATIENT TOILETED. PATIENT HAD INCONTINENCE IN BED. COMPLETE BED CHANGE. PATIENT RETURNED TO BED & MADE COMFORTABLE. CALL LIGHT WITHIN REACH. BED LOW. WILL CONTINUE TO MONITOR.
--- NOTE | 2019-02-14 03:04 | NUR ---
RESTING IN BED WITH EYES CLOSED AND RESPIRATIONS UNLABORED. NO DISTRESS NOTED. CALL LIGHT IN REACH.
[2019-02-14 06:17] LABS: INR 2.12 (0.85-1.17)
[2019-02-14 08:00] VITALS: BP 159/62
--- NOTE | 2019-02-14 08:35 | NUR ---
PT RESTING IN BED WITH EYES OPEN CALL LIGHT IN REACH NO PROBLEMS WILL MONITERS
--- NOTE | 2019-02-14 18:37 | NUR ---
I have reviewed this patient and I concur with the Shift Assessment completed by the Licensed Practical Nurse today this shift.
[2019-02-14 19:30] VITALS: BP 130/66
--- NOTE | 2019-02-14 20:01 | NUR ---
GREETED PATIENT AND INTRODUCED MYSELF HER NURSE FOR THE EVENING. PATIENT IS SITTING IN WHEELCHAIR AND DENIES ANY NEEDS AT THIS TIME. CALL LIGHT IN REACH.
--- NOTE | 2019-02-15 02:37 | NUR ---
PATIENT RESTING QUIETLY WITH EYES CLOSED. RESPIRATIONS EVEN. NO S/S OF DISTRESS. CALL LIGHT IN REACH. SR UP X 2. BED IN LOWEST POSITION. CALL LIGHT IN REACH.
[2019-02-15 07:15] LABS: ANION GAP 10.8 mmol/L (8-16); CALCIUM 8.4 mg/dL (8.5-10.1); CARBON DIOXIDE 30.6 mmol/L (21.0-32.0); POTASSIUM - SERUM 3.4 mmol/L (3.5-5.1)
--- NOTE | 2019-02-15 08:00 | NUR ---
PATIENT IS ALERT/OREINT. CALL LIGHT WITHIN REACH. VOICES NO NEEDS. PATIENT TO BE DISCHARGE TO HOME TODAY
[2019-02-15 08:06] LABS: BASOPHILS 0 % (0-2); EOSINOPHILS 0.6 % (0-7); HEMATOCRIT 33.9 % (36.0-48.0); HEMOGLOBIN 10.2 g/dL (12-16); IMMATURE GRANULOCYTES 0.6 % (0-5); LYMPHOCYTES 13.1 % (15-50); MCH 28.4 pg (26.0-34.0); MCHC 30.1 g/dL (31.0-37.0); MCV 94.4 fL (80.0-100.0); MONOCYTES 7.3 % (2-11); NEUTROPHILS 78.4 % (40-80); PLATELET COUNT 271 10x3/uL (130-400); RBC 3.59 10x6/uL (4.00-5.40); RDW 15.3 % (11.5-14.5); WBC 6.9 10x3/uL (4.8-10.8)
[2019-02-15 08:07] LABS: PROTIME 27.1 SECONDS (11.6-15.0)
[2019-02-15 08:09] VITALS: BP 169/75
[2019-02-15 08:10] LABS: INR 2.6 (0.85-1.17)
[2019-02-15] MEDS ORDERED: ULTRAM50 MG PO (08:33)
[2019-02-15] MEDS ORDERED: Aricept PO (08:33)
[2019-02-15] MEDS ORDERED: MEDROL DOSE PACK4 MG PO (08:35)
--- NOTE | 2019-02-15 10:26 | NUR ---
DR Lei MOSS INTO SEE PATIENT. NEW ORDERS FOR DISCHARGE TO HOME TODAY
--- NOTE | 2019-02-15 10:28 | NUR ---
PATIENT DISCHARGING HOME WITH FAMILY TODAY. [facility] WILL PROVIDE NURSING AND THERAPY AT HOME. [employer] [facility] WILL DELIVER A NEBULIZER TO PATIENT HOME. DR. ISLAS 02/26/19 @ 3:00. PATIENT CHOICE FORM AND IMFM FORMS SIGNED, COPY GIVEN TO PATIENT AND FILED IN CHART. DISHCARGE INSRUCTIONS WITH [employer] FAXED TO PCP, HOME HEALTH AND INSURANCE TO [facility] AT [phone] AUTH. # [id number] AND REVIEWED WITH PATIENT AND FAMILY.
--- NOTE | 2019-02-15 12:10 | NUR ---
PATIENTS HERE TO TAKE PATIENT HOME. DISCHARGE INSTRUCTIONS GONE OVER WITH PATIENT AND . DISCHARGE MEDICATION CALLED INTO [facility].
== END 2019-02-15 12:11 | disposition home health service (06) | DRG 56 ==
LOC: D.REHAB 16:55
PROVIDERS: ADMIT Emergency Medicine; ATTEND Emergency Medicine
DX: I69.90 Unspecified sequelae of unspecified cerebrovascular disease (principal); J18.9 Pneumonia, unspecified organism; G72.81 Critical illness myopathy; N17.9 Acute kidney failure, unspecified; J90 Pleural effusion, not elsewhere classified; E66.01 Morbid (severe) obesity due to excess calories; E87.5 Hyperkalemia; I95.9 Hypotension, unspecified; D50.9 Iron deficiency anemia, unspecified; R09.02 Hypoxemia; R06.00 Dyspnea, unspecified; S22.49XD Multiple fractures of ribs, unspecified side, subsequent encounter for fracture with routine healing; R53.1 Weakness; E86.0 Dehydration; L13.8 Other specified bullous disorders; T36.8X5A Adverse effect of other systemic antibiotics, initial encounter; E11.65 Type 2 diabetes mellitus with hyperglycemia; F32.9 Major depressive disorder, single episode, unspecified; M19.90 Unspecified osteoarthritis, unspecified site

== ENCOUNTER → 2019-02-28 13:24 | Outpatient (CLI) | payer MEDICARE ==
[2019-01-30 09:31] VITALS: BMI 40.1
[~2019-02-28 13:24] MED LIST changes: +Aricept PO; +MEDROL DOSE PACK4 MG PO; +ULTRAM50 MG PO
== END | disposition home or self-care (01) ==
LOC: D.CT 13:24
PROVIDERS: ATTEND Family Medicine
DX: Z76.89 Persons encountering health services in other specified circumstances (principal)

== ENCOUNTER 2019-03-02 13:03 | Emergency (ER) | payer MEDICARE ==
[~2019-03-02] VITALS: Ht 165.1 cm; Wt 109.5 kg
[2019-03-02 13:09] VITALS: Ht 165.1 cm; Wt 109.5 kg
[2019-03-02 13:55] LABS: BASOPHILS 0.2 % (0-2); EOSINOPHILS 1.5 % (0-7); HEMATOCRIT 22.8 % (36.0-48.0); IMMATURE GRANULOCYTES 0.4 % (0-5); LYMPHOCYTES 19.4 % (15-50); MCH 28.1 pg (26.0-34.0); MCHC 29.8 g/dL (31.0-37.0); MCV 94.2 fL (80.0-100.0); MEAN PLATELET VOLUME 8.8 fL (7.4-10.4); MONOCYTES 5.3 % (2-11); NEUTROPHILS 73.2 % (40-80); RBC 2.42 10x6/uL (4.00-5.40); RDW 15.8 % (11.5-14.5); WBC 8.3 10x3/uL (4.8-10.8)
[2019-03-02 13:57] LABS: ALBUMIN 1.9 g/dL (3.4-5.0); ALKALINE PHOSPHATASE 47 U/L (46-116); ALT (SGPT) 19 U/L (10-68); BILIRUBIN - TOTAL 0.28 mg/dL (0.2-1.3); CALC OSMOLALITY 299 mosm/kg (275-300); CALCIUM 7.9 mg/dL (8.5-10.1); CARBON DIOXIDE 28.9 mmol/L (21.0-32.0); CHLORIDE - SERUM 109 mmol/L (98-107); CREATININE - SERUM 2.2 mg/dL (0.6-1.3); GLUCOSE 97 mg/dL (74-106); POTASSIUM - SERUM 5.2 mmol/L (3.5-5.1); PROTEIN - SERUM 4.9 g/dL (6.4-8.2); SODIUM 142 mmol/L (136-145); UREA NITROGEN 61 mg/dL (7-18); eGFR NON AFRICAN AMERICAN 23 mL/min (90-120)
[2019-03-02 13:58] LABS: HEMOGLOBIN 6.8 g/dL (12-16); PLATELET COUNT 175 10x3/uL (130-400)
[2019-03-02 14:00] LABS: APTT 72.2 SECONDS (22.8-39.4)
[2019-03-02 14:07] LABS: CKMB 0.7 U/L (0.0-3.6); CREATINE KINASE 15 UL (21-215); MAGNESIUM - SERUM 1.8 mg/dL (1.8-2.4); TROPONIN-I 0.041 ng/mL (0.000-0.060)
[2019-03-02 14:21] LABS: INR > 16.37 (0.85-1.17); PROTIME > 120.0 SECONDS (11.6-15.0)
[2019-03-02 14:27] LABS: APPEARANCE CLEAR (CLEAR); BILIRUBIN NEGATIVE (NEGATIVE); COLOR YELLOW (YELLOW); GLUCOSE NEGATIVE (NEGATIVE); KETONE NEGATIVE (NEGATIVE); NITRITE NEGATIVE (NEGATIVE); PROTEIN NEGATIVE (NEGATIVE); UROBILINOGEN NORMAL (NORMAL)
[2019-03-02 17:36] VITALS: BP 93/73
[2019-03-02 18:34] LABS: BASOPHILS 0.1 % (0-2); EOSINOPHILS 1.9 % (0-7); HEMATOCRIT 24.4 % (36.0-48.0); HEMOGLOBIN 7.6 g/dL (12-16); IMMATURE GRANULOCYTES 0.6 % (0-5); LYMPHOCYTES 19.4 % (15-50); MCH 29.3 pg (26.0-34.0); MCHC 31.1 g/dL (31.0-37.0); MCV 94.2 fL (80.0-100.0); MEAN PLATELET VOLUME 8.8 fL (7.4-10.4); MONOCYTES 4.2 % (2-11); NEUTROPHILS 73.8 % (40-80); PLATELET COUNT 156 10x3/uL (130-400); RBC 2.59 10x6/uL (4.00-5.40); RDW 15.4 % (11.5-14.5)
== END 2019-03-02 18:58 | disposition other institution (70) ==
LOC: D.ER 13:03
PROVIDERS: Emergency Medicine
DX: D64.9 Anemia, unspecified (principal); R53.1 Weakness; R07.89 Other chest pain

== ENCOUNTER → 2019-08-12 10:18 | Outpatient (CLI) | payer MEDICARE ==
[2019-03-02 13:09] VITALS: BMI 40.1
== END | disposition home or self-care (01) ==
LOC: D.RAD 10:18
PROVIDERS: ATTEND Family Medicine
DX: R13.10 Dysphagia, unspecified (principal)

== ENCOUNTER 2019-11-08 15:08 | Inpatient (IN) | payer MEDICARE ==
[~2019-11-08] VITALS: Ht 165.1 cm; Wt 73.2 kg
[2020-03-03] MEDS ORDERED: ELIQUIS5 MG PO (12:59)
[2020-03-03] MEDS ORDERED: LIPITOR40 MG PO (13:01)
[2020-03-03] MEDS ORDERED: BUSPAR10 MG PO (13:03)
[2020-03-03] MEDS ORDERED: HYDROCODON-ACE1 EA10 PO (13:03)
[2020-03-03] MEDS ORDERED: FUROSEMIDE40 MG PO (13:04)
[2020-03-03] MEDS ORDERED: RIVASTIGMINE4.5 MG PO (13:04)
[2020-03-03] MEDS ORDERED: VITAMIN D5000 UNI1 PO (13:05)
[2020-03-04] MEDS ORDERED: POTASSIUM PO (11:27)
[2020-03-04 11:35] VITALS: BP 125/65; BMI 26.1
[2020-03-04] MEDS ORDERED: HYDROCODON-ACE1 EAC7 PO (13:10)
[2020-03-26] MEDS ORDERED: LOVENOX30 MG/0.3 IM (12:16)
[2020-03-26] MEDS ORDERED: FUROSEMIDE20 MG (12:17)
[2020-03-26] MEDS ORDERED: MELATONIN (12:21)
[2020-03-26 13:40] LABS: BASOPHILS 0.1 % (0-2); HEMATOCRIT 40.8 % (36.0-48.0); HEMOGLOBIN 12.7 g/dL (12-16); IMMATURE GRANULOCYTES 0.3 % (0-5); LYMPHOCYTES 29.9 % (15-50); MCH 28.4 pg (26.0-34.0); MCHC 31.1 g/dL (31.0-37.0); MCV 91.3 fL (80.0-100.0); MONOCYTES 7.9 % (2-11); NEUTROPHILS 59.8 % (40-80); PLATELET COUNT 235 10x3/uL (130-400); RBC 4.47 10x6/uL (4.00-5.40); WBC 7.5 10x3/uL (4.8-10.8)
[2020-03-26 13:52] LABS: ANION GAP 7.8 mmol/L (8-16); CALCIUM 9.7 mg/dL (8.5-10.1); CARBON DIOXIDE 33.9 mmol/L (21.0-32.0); CREATININE - SERUM 1.1 mg/dL (0.6-1.3); POTASSIUM - SERUM 3.7 mmol/L (3.5-5.1)
[2020-03-26 14:23] LABS: APTT 26.9 SECONDS (22.8-39.4); INR 1.05 (0.85-1.17); PROTIME 13.6 SECONDS (11.6-15.0)
[2020-03-26 14:29] LABS: GLUCOSE NEGATIVE (NEGATIVE); KETONE NEGATIVE (NEGATIVE); NITRITE NEGATIVE (NEGATIVE); SPECIFIC GRAVITY 1.015 (1.005-1.020); UROBILINOGEN NORMAL (NORMAL)
[2020-03-26 14:30] LABS: BACTERIA FEW /hpf (NEGATIVE); BILIRUBIN NEGATIVE (NEGATIVE); EPITHELIAL CELLS OCC /hpf (0-5); HYALINE CAST 0-5 /lpf (NONE SEEN); RED CELLS - URINE 0-5 /hpf (0-5); WHITE CELLS - URINE RARE /hpf (NEGATIVE)
[2020-03-31] VITALS (12 sets, daily range): BP systolic 94–163; BP diastolic 44–80; Ht 165.1 cm; Wt 73.2 kg
[2020-03-31] MEDS ORDERED: ZANAFLEX2 M1 PO (06:07)
[2020-03-31] MEDS ORDERED: ALBUTEROL0.63 MG/3 INH (06:07)
--- NOTE | 2020-03-31 07:59 | NUR ---
PLASMA BLADE AND AQAUMANTYS USED. CAUTERY PAD PLACED ON LEFT FLANK. LOT#[id number] EXP. 09/06/2021
--- NOTE | 2020-03-31 09:37 | NUR ---
0905 - PT DUSKY AND GASPING UPON ARRIVAL, PULSEOX 25%. RESP VIA BVM BY ANESTHESIA, ADDITIONAL TREATMENT BY ANESTHESIA.
--- NOTE | 2020-03-31 19:42 | NUR ---
PATIENT IS RESTING COMFORTABLY IN BED. SCD APPLIED TO BILATERAL LEGS. SHE IS ALERT AND ORIENTED. SHE HAS NO COMPLAINTS AT THIS TIME.
[2020-04-01 00:13] VITALS: BP 103/46
[2020-04-01 03:50] VITALS: BP 102/48
--- NOTE | 2020-04-01 05:40 | NUR ---
PATIENT DID NOT SLEEP MUCH LAST NIGHT. SHE DID NOT VOID MUCH. I WENT TO STRAIGHT CATH THE PATIENT, AND SHE SAID SHE FELT LIKE SHE HAD TO HAVE A BOWEL MOVEMENT, SO SHE GOT ON BED SIDE COMMODE AND VOIDED. WE WILL CONTINUE TO MONITOR HER URINE OUTPUT.
[2020-04-01 07:16] LABS: HEMATOCRIT 34.7 % (36.0-48.0); HEMOGLOBIN 10.6 g/dL (12-16); MCH 28.6 pg (26.0-34.0); MCHC 30.5 g/dL (31.0-37.0); MCV 93.5 fL (80.0-100.0); MEAN PLATELET VOLUME 9.1 fL (7.4-10.4); RBC 3.71 10x6/uL (4.00-5.40); RDW 14.3 % (11.5-14.5); WBC 8.7 10x3/uL (4.8-10.8)
[2020-04-01] MEDS ORDERED: HYDROCODON-ACE1 EA10 PO (07:21)
--- NOTE | 2020-04-01 07:29 | OP ---
PATIENT NAME: BENJAMIN CHAMBERS MEDICAL RECORD: [id number] :35 LOCATION:D. D.1208 ADMISSION DATE:03/31/20 SURGEON: FRANK CLEMENTS DO DATE OF OPERATION: 03/31/2020 PROCEDURE PERFORMED: Right reverse total shoulder arthroplasty. PREOPERATIVE DIAGNOSIS: Right shoulder osteoarthritis. POSTOPERATIVE DIAGNOSIS: Right shoulder osteoarthritis. INDICATIONS: Ms. Chambers is an 84-year-old female who has had severe arthritis in the right shoulder for quite some time. It got to the point where it had worn the glenoid down pretty much to the coracoid base. I informed her that an anatomic shoulder would not do well and that a reverse would be better due to wear. She was okay with that and was aware of the risks including infection, bleeding, fracture, damage to nerves and vessels in the area, continued pain. She had very little range of motion before. I told her she may not gain that back, also risk of dislocation and failure of implants and she signed the consent. SURGEON: Frank Clements DO DESCRIPTION OF PROCEDURE: The patient received a block by anesthesia in the preoperative area. She was taken to the operative suite, laid in the supine position, sedated and intubated. She was given 900 mg of clindamycin preoperatively. She was then sat up in the beach chair position. The right shoulder was prepped and draped in sterile fashion. A timeout was performed and everyone was in agreeance with the correct side, site, patient and procedure. I then marked out the deltopectoral interval and after a timeout had been performed, I made the incision and then went through the deltopectoral interval, released proximal centimeter of the pec and tenodesed the long head of bicep tendon to the stump of the pec tendon. I then opened up the rotator interval and tagged the subscap, peeled it off and externally rotated the humerus, exposed the humeral head. I then used a guide and made the cut off the humeral head. Her bone was extremely soft. We then removed the osteophytes off the humerus and then put the retractors in, used a Tirado to take the subscap off the anterior scapula and then exposed the glenoid and placed a centering pin and then the ream, put the baseplate on and put in the central screw, measured to be 25 and then 3 peripheral screws two 25 and a 15. I then impacted on the glenosphere. Once the glenosphere was in good position, I then exposed the humerus and reamed up to a 9 and then broached to a 9, 9 was a little loose. We then reamed to a 10 and put in a 10 stem and reduced it. We ended up going with a +6 offset and a 3+ retention poly. We trialed that and fit well, had good range of motion and good tension on the deltoid fibers. I then removed the trial and put in the actual implant with a 10 stem and a 10 poly with the tray impacted that on and reduced the shoulder and ranged that, showed good range of motion and good tension on the deltoid fibers and the conjoined tendon. Then Michael Rodas, certified surgical electrician's assistant put in the 10% povidone iodine with 500 mL normal saline solution and let it set for 3 minutes. We irrigated out with a liter of normal saline. I was assisted by Brandon Esquivel MD and Michael Rodas, certified surgical electrician's assistant. Dr. Esquivel assisted me with retracting and other parts of the procedure. Michael Rodas assisted with closing and retraction. Once the Betadine was irrigated out, tobramycin powder was put in as well as Jose powder and the skin was closed with 2-0 Vicryl in an OPERATIVE REPORT [id number] BENJAMIN CHAMBERS A interrupted fashion, 4-0 Monocryl ran on the skin and Prineo glue placed on the skin. She was then dressed with Telfa and Tegaderm. Awakened and taken to recovery in stable condition. BLOOD LOSS: Approximately 150. COMPLICATIONS: None. TRANSINT:[id number] Voice Confirmation ID: [id number] DOCUMENT ID: [id number] FRANK CLEMENTS DO at 0729 CC: [id number] DICTATION DATE: 03/31/2042 FEATHER WASHER: 03/31/20 1152 ADM IN [place] [id number] [place] [address]
--- NOTE | 2020-04-01 07:52 | NUR ---
PATIENT ALERT AND ORIENTED. RESTING QUIETLY IN BE WITH EYES OPEN. RESPIRATIONS EVEN NON LABORED. NO SIGNS OF DISTRESS NOTED. ON 2L NASAL CANNULA. IV LEFT HAND NORMAL SALINE AT 50ML/HR. SCDS ON. TEGADERM 2X2 ON RIGHT SHOULDER CLEAN DRY INTACT. DENIES FURTHER NEEDS. SIDE RAILS UP X3. CALL LIGHT IN REACH. WILL CONTINUE TO MONITOR FOR SAFETY.
[2020-04-01 08:00] VITALS: BP 93/39
--- NOTE | 2020-04-01 11:52 | MORECARE ---
CASE MANAGEMENT DISCHARGE SUMMARY PATIENT: BENJAMIN CHAMBERS UNIT: [id number] ADM DATE: 03/31/20 AGE: 84 : 35 SEX: F ROOM/BED: D.1208 AUTHOR: ADRY RILEY PHYSICIAN: REFERRING PHYSICIAN: FRANSICO CLEMENTS DO DATE OF SERVICE: 04/01/20 Discharge Plan Patient Name: BENJAMIN CHAMBERS [facility] [facility] 1935 Planned Disposition: Home Health Service Anticipated Discharge Date: 04/01/20 Discharge Date: Expected LOS: 1 Initial Reviewer: [email or web address] Initial Review Date: 03/31/2020 Generated: 04/01/20 12:52 pm Patient Name: BENJAMIN CHAMBERS Page [id number] at 1152 All edits/amendments must be made on the electronic document DICTATION DATE: 04/01/20 1152 TALKBACK HOST: MYKEL 04/01/20 1152 RPT#: [id number] DC DATE: STATUS: ADM IN [facility] [address] [place] [address] END OF REPORT
--- NOTE | 2020-04-01 12:03 | MORECARE ---
CASE MANAGEMENT DISCHARGE SUMMARY PATIENT: BENJAMIN CHAMBERS UNIT: [id number] ADM DATE: 03/31/20 AGE: 84 : 35 SEX: F ROOM/BED: D.1208 AUTHOR: ADRY RILEY PHYSICIAN: REFERRING PHYSICIAN: FRANSICO CLEMENTS DO DATE OF SERVICE: 04/01/20 Discharge Plan Patient Name: BENJAMIN CHAMBERS Facility: [facility]:[place] : 1935 Planned Disposition: Home Health Service Anticipated Discharge Date: 04/01/20 Discharge Date: Expected LOS: 1 Initial Reviewer: [email or web address] Initial Review Date: 03/31/2020 Generated: 04/01/20 1:02 pm DCPIA - Discharge Planning Initial Assessment Updated by [email or web address]: Harriet Dwyer on 04/01/20 11:56 am * Is the patient Alert and Oriented? Yes * How many steps to enter\exit or inside your home? ramp * PCP Sketas * Pharmacy [facility] * Preadmission Environment Home with Family * ADLs Partial Dependent * Partial ADLs (Assistance needed) Bathing Dressing * Equipment Glucometer Oxygen Wheelchair * List name and contact numbers for known caregivers / representatives who currently or will assist patient after discharge: Surendra Chambers, spouse, * Verbal permission to speak to the caregivers and representatives has been obtained from the patient. Yes * Community resources currently utilized Home Health * Please name any agencies selected above. [facility] * Additional services required to return to the preadmission environment? No * Can the patient safely return to the preadmission environment? Yes * Has this patient been hospitalized within the prior 30 days at any hospital? No External Providers [facility] Next Contact Date: Service Request Date: Service Type: Resolution: Reviewer: Comments: Last DP export: 04/01/20 10:52 a Patient Name: BENJAMIN CHAMBERS Page [phone] at 1203 All edits/amendments must be made on the electronic document DICTATION DATE: 04/01/20 1202 LOOM FIXER HELPER: MYKEL 04/01/20 1202 RPT#: [id number] DC DATE: STATUS: ADM IN [facility] [address] [place] [address] END OF REPORT
--- NOTE | 2020-04-01 12:27 | MORECARE ---
CASE MANAGEMENT DISCHARGE SUMMARY PATIENT: BENJAMIN CHAMBERS UNIT: [id number] ADM DATE: 03/31/20 AGE: 84 : 35 SEX: F ROOM/BED: D.1208 AUTHOR: OSVALDO,DOC PHYSICIAN: REFERRING PHYSICIAN: FRANSICO CLEMENTS DO DATE OF SERVICE: 04/01/20 Discharge Plan Patient Name: BENJAMIN CHAMBERS Facility: [facility]:[place] : 1935 Planned Disposition: Home Health Service Anticipated Discharge Date: 04/01/20 Discharge Date: Expected LOS: 1 Initial Reviewer: [email or web address] Initial Review Date: 03/31/2020 Generated: 04/01/20 1:26 pm Comments DCP- Discharge Planning Updated by [email or web address]: Harriet Dwyer on 04/01/20 11:[address] Patient Name: BENJAMIN CHAMBERS Admission Status: Elective Accout number: [id number] Admission Date: 03-31-2020 : 1935 Admission Diagnosis: Attending: FRANSICO CLEMENTS Current LOS: 1 Anticipated DC Date: 04-01-2020 Planned Disposition: Home Health Service Primary Insurance: [facility] [employer] [employer] Discharge Planning Comments: After obtaining verbal consent, CM met with patient and spouse to discuss discharge planning / needs. Patient states her plan is to discharge home. States she already gets Home Health through [facility]. States home environment is safe. Spouse will transport her home upon discharge. Denies any other discharge planning needs at this. DC IMM explained and signed. GROVER explained and signed for [facility]. CM will continue to follow and assist as needed with DCP needs. Umbrella Frame Maker: Harriet Dwyer DCPIA - Discharge Planning Initial Assessment Updated by [email or web address]: Harriet Dwyer on 04/01/20 11:56 am * Is the patient Alert and Oriented? Yes * How many steps to enter\exit or inside your home? ramp * PCP Sketas * Pharmacy [facility] * Preadmission Environment Home with Family * ADLs Partial Dependent * Partial ADLs (Assistance needed) Bathing Dressing * Equipment Glucometer Oxygen Wheelchair * List name and contact numbers for known caregivers / representatives who currently or will assist patient after discharge: Surendra Chambers, spouse, * Verbal permission to speak to the caregivers and representatives has been obtained from the patient. Yes * Community resources currently utilized Home Health * Please name any agencies selected above. [facility] * Additional services required to return to the preadmission environment? No * Can the patient safely return to the preadmission environment? Yes * Has this patient been hospitalized within the prior 30 days at any hospital? No Coverage Notice Reviewer: DEE DEE Dwyer Notice Issued Date-Time: 04/01/2020 11:20 Notice Type: IM Discharge Notice Notice Delivered To: Patient Relationship to Patient: Self Professor Of Radiology Name: Delivery Method: EXPR - Express Mail Yohana Days: Prior Verbal Notification: Recipient Understood Notice: Yes Recipient Signature: Yes Med Rec Note Co-signed by Attending: Coverage Notice Comment: Reviewer: DEE DEE Dwyer Notice Issued Date-Time: 04/01/2020 11:20 Notice Type: Patient Choice Letter Notice Delivered To: Patient Relationship to Patient: Self Professor Of Radiology Name: Delivery Method: HAND - Hand Delivered Yohana Days: Prior Verbal Notification: Recipient Understood Notice: Yes Recipient Signature: Yes Med Rec Note Co-signed by Attending: Coverage Notice Comment: Last DP export: 04/01/20 11:03 a Patient Name: BENJAMIN CHAMBERS Page [id number] at 1227 All edits/amendments must be made on the electronic document DICTATION DATE: 04/01/20 1227 VALIDATION INTERN: MYKEL 04/01/20 1227 RPT#: [id number] DC DATE: STATUS: ADM IN [facility] [address] [place] [address] END OF REPORT
[2020-04-01 13:42] VITALS: BP 92/39
--- NOTE | 2020-04-01 14:27 | NUR ---
PATIENT ALERT AND ORIENTED. RESTING IN BED WITH EYES OPEN. FAMILY AT BEDSIDE. RESPIRATIONS EVEN NON LABORED. NO SIGNS OF DISTRESS NOTED. DENIES FURTHER NEEDS. SIDE RAILS UP CALL LIGHT IN REACH. WILL CONTINUE TO MONITOR.
--- NOTE | 2020-04-01 14:54 | MORECARE ---
CASE MANAGEMENT DISCHARGE SUMMARY PATIENT: BENJAMIN CHAMBERS UNIT: [id number] ADM DATE: 03/31/20 AGE: 84 : 35 SEX: F ROOM/BED: D.1208 AUTHOR: OSVALDO,DOC PHYSICIAN: REFERRING PHYSICIAN: FRANSICO CLEMENTS DO DATE OF SERVICE: 04/01/20 Discharge Plan Patient Name: BENJAMIN CHAMBERS Facility: [facility]:[place] : 1935 Planned Disposition: Home Health Service Anticipated Discharge Date: 04/01/20 Discharge Date: Expected LOS: 1 Initial Reviewer: [email or web address] Initial Review Date: 03/31/2020 Generated: 04/01/20 3:53 pm Comments DCP- Discharge Planning Updated by [email or web address]: Harriet Dwyer on 04/01/20 1:[address] Called [facility] about resumption of care. Spoke with Monica. Notified of anticipated discharge today. [place] states agency will resume home health tomorrow. Faxed records as requested. DCP- Discharge Planning Updated by [id number]: Harriet Dwyer on 04/01/20 11:[address] Patient Name: BENJAMIN CHAMBERS Admission Status: Elective Accout number: [id number] Admission Date: 03-31-2020 : 1935 Admission Diagnosis: Attending: FRANSICO CLEMENTS Current LOS: 1 Anticipated DC Date: 04-01-2020 Planned Disposition: Home Health Service Primary Insurance: [facility] [employer] Discharge Planning Comments: After obtaining verbal consent, CM met with patient and spouse to discuss discharge planning / needs. Patient states her plan is to discharge home. States she already gets Home Health through [facility]. States home environment is safe. Spouse will transport her home upon discharge. Denies any other discharge planning needs at this. DC IMM explained and signed. GROVER explained and signed for [facility]. CM will continue to follow and assist as needed with DCP needs. Bat Boy/Girl: Harriet Dwyer DCPIA - Discharge Planning Initial Assessment Updated by [email or web address]: Harriet Dwyer on 04/01/20 11:56 am * Is the patient Alert and Oriented? Yes * How many steps to enter\exit or inside your home? ramp * PCP Sketas * Pharmacy [facility] * Preadmission Environment Home with Family * ADLs Partial Dependent * Partial ADLs (Assistance needed) Bathing Dressing * Equipment Glucometer Oxygen Wheelchair * List name and contact numbers for known caregivers / representatives who currently or will assist patient after discharge: Surendra Chambers, spouse, * Verbal permission to speak to the caregivers and representatives has been obtained from the patient. Yes * Community resources currently utilized Home Health * Please name any agencies selected above. [facility] * Additional services required to return to the preadmission environment? No * Can the patient safely return to the preadmission environment? Yes * Has this patient been hospitalized within the prior 30 days at any hospital? No Coverage Notice Reviewer: DEE DEE Dwyer Notice Issued Date-Time: 04/01/2020 11:20 Notice Type: IM Discharge Notice Notice Delivered To: Patient Relationship to Patient: Self Food Service Team Member Name: Delivery Method: EXPR - Express Mail Yohana Days: Prior Verbal Notification: Recipient Understood Notice: Yes Recipient Signature: Yes Med Rec Note Co-signed by Attending: Coverage Notice Comment: Reviewer: DEE DEE Dwyer Notice Issued Date-Time: 04/01/2020 11:20 Notice Type: Patient Choice Letter Notice Delivered To: Patient Relationship to Patient: Self Food Service Team Member Name: Delivery Method: HAND - Hand Delivered Yohana Days: Prior Verbal Notification: Recipient Understood Notice: Yes Recipient Signature: Yes Med Rec Note Co-signed by Attending: Coverage Notice Comment: Last DP export: 04/01/20 11:27 a Patient Name: BENJAMIN CHAMBERS Page [phone] at 1454 All edits/amendments must be made on the electronic document DICTATION DATE: 04/01/20 1454 REPULPING SUPERVISOR: MYKEL 04/01/20 1454 RPT#: [id number] DC DATE: STATUS: ADM IN [facility] [address] [place] [address] END OF REPORT
--- NOTE | 2020-04-02 00:51 | MORECARE ---
CASE MANAGEMENT DISCHARGE SUMMARY PATIENT: BENJAIMN CHAMBERS UNIT: [id number] ADM DATE: 03/31/20 AGE: 84 : 35 SEX: F ROOM/BED: D.1208 AUTHOR: OSVALDO,DOC PHYSICIAN: REFERRING PHYSICIAN: FRANSICO CLEMENTS DO DATE OF SERVICE: 04/02/20 Discharge Plan Patient Name: BENJAMIN CHAMBERS Facility: [facility]:[place] : 1935 Planned Disposition: Home Health Service Anticipated Discharge Date: 04/01/20 Discharge Date: 04/01/2020 Expected LOS: 1 Initial Reviewer: [email or web address] Initial Review Date: 03/31/2020 Generated: 04/02/20 1:50 am Comments DCP- Discharge Planning Updated by [email or web address]: Harriet Dwyer on 04/01/20 1:[address] Called [facility] about resumption of care. Spoke with Monica. Notified of anticipated discharge today. Leroy states agency will resume home health tomorrow. Faxed records as requested. DCP- Discharge Planning Updated by [email or web address]: Harriet Dwyer on 04/01/20 11:[address] Patient Name: BENJAMIN CHAMBERS Admission Status: Elective Accout number: [id number] Admission Date: 03-31-2020 : 1935 Admission Diagnosis: Attending: FRANSICO CLEMENTS Current LOS: 1 Anticipated DC Date: 04-01-2020 Planned Disposition: Home Health Service Primary Insurance: [facility] [employer] Discharge Planning Comments: After obtaining verbal consent, CM met with patient and spouse to discuss discharge planning / needs. Patient states her plan is to discharge home. States she already gets Home Health through [facility]. States home environment is safe. Spouse will transport her home upon discharge. Denies any other discharge planning needs at this. DC IMM explained and signed. GROVER explained and signed for [facility]. CM will continue to follow and assist as needed with DCP needs. Website Programmer: Harriet Dwyer DCPIA - Discharge Planning Initial Assessment Updated by [email or web address]: Harriet Dwyer on 04/01/20 11:56 am * Is the patient Alert and Oriented? Yes * How many steps to enter\exit or inside your home? ramp * PCP [place] * Pharmacy [facility] * Preadmission Environment Home with Family * ADLs Partial Dependent * Partial ADLs (Assistance needed) Bathing Dressing * Equipment Glucometer Oxygen Wheelchair * List name and contact numbers for known caregivers / representatives who currently or will assist patient after discharge: Surendra Chambers, spouse, * Verbal permission to speak to the caregivers and representatives has been obtained from the patient. Yes * Community resources currently utilized Home Health * Please name any agencies selected above. [facility] * Additional services required to return to the preadmission environment? No * Can the patient safely return to the preadmission environment? Yes * Has this patient been hospitalized within the prior 30 days at any hospital? No Coverage Notice Reviewer: DEE DEE Dwyer Notice Issued Date-Time: 04/01/2020 11:20 Notice Type: IM Discharge Notice Notice Delivered To: Patient Relationship to Patient: Self Clinical Trial Leader Name: Delivery Method: EXPR - Express Mail [place] Days: Prior Verbal Notification: Recipient Understood Notice: Yes Recipient Signature: Yes Med Rec Note Co-signed by Attending: Coverage Notice Comment: Reviewer: DEE DEE Dwyer Notice Issued Date-Time: 04/01/2020 11:20 Notice Type: Patient Choice Letter Notice Delivered To: Patient Relationship to Patient: Self Clinical Trial Leader Name: Delivery Method: HAND - Hand Delivered [place] Days: Prior Verbal Notification: Recipient Understood Notice: Yes Recipient Signature: Yes Med Rec Note Co-signed by Attending: Coverage Notice Comment: Last DP export: 04/01/20 1:54 p Patient Name: BENJAMIN CHAMBERS Page [id number] at [id number] All edits/amendments must be made on the electronic document DICTATION DATE: 04/02/2050 MODULAR SET CREW MEMBER: MYKEL 04/02/2050 RPT#: [id number] DC DATE:04/01/20 STATUS: DIS IN [facility] [address] [place] [address] END OF REPORT
== END 2020-04-01 16:30 | disposition home health service (06) | DRG 483 ==
LOC: D.SDCHOLD 01-28 07:00 → D.M3 03-31 05:00 → D.SDCHOLD 03-31 07:00 → D.M3 03-31 09:57
PROVIDERS: ADMIT Orthopaedic Surgery; ATTEND Orthopaedic Surgery
PROC: 0RRJ00Z Replacement of Right Shoulder Joint with Reverse Ball and Socket Synthetic Substitute, Open Approach (ICD-10-PCS; principal; 2020-03-31 07:00)
DX: M19.011 Primary osteoarthritis, right shoulder (principal); E11.9 Type 2 diabetes mellitus without complications; E03.9 Hypothyroidism, unspecified; I10 Essential (primary) hypertension; F03.90 Unspecified dementia, unspecified severity, without behavioral disturbance, psychotic disturbance, mood disturbance, and anxiety

== ENCOUNTER → 2020-02-11 16:38 | Outpatient (CLI) | payer MEDICARE ==
[2019-03-02 13:09] VITALS: BMI 40.1
[2020-02-11 17:35] LABS: BILIRUBIN NEGATIVE (NEGATIVE); GLUCOSE NEGATIVE (NEGATIVE); KETONE NEGATIVE (NEGATIVE); NITRITE NEGATIVE (NEGATIVE); SPECIFIC GRAVITY 1.025 (1.005-1.020); UROBILINOGEN NORMAL (NORMAL)
[2020-02-11 17:37] LABS: EPITHELIAL CELLS OCC /hpf (0-5); RED CELLS - URINE 0-5 /hpf (0-5)
[2020-02-11 17:38] LABS: BACTERIA MODERATE /hpf (NEGATIVE)
== END | disposition home or self-care (01) ==
LOC: D.LABREF 16:38
PROVIDERS: ATTEND Family Medicine
DX: N39.0 Urinary tract infection, site not specified (principal)

== ENCOUNTER 2020-03-04 10:20 | Day surgery (SDC) | payer MEDICARE ==
[2019-03-02 13:09] VITALS: BMI 40.1
[~2020-03-04 10:20] MED LIST changes: +BUSPAR10 MG PO; +ELIQUIS5 MG PO; +FUROSEMIDE40 MG PO; +HYDROCODON-ACE1 EA10 PO; +LIPITOR40 MG PO; +RIVASTIGMINE4.5 MG PO; +VITAMIN D5000 UNI1 PO
[2020-03-04 10:47] LABS: BASOPHILS 0.1 % (0-2); EOSINOPHILS 2.6 % (0-7); HEMATOCRIT 45.6 % (36.0-48.0); HEMOGLOBIN 14.2 g/dL (12-16); IMMATURE GRANULOCYTES 0.1 % (0-5); MCH 28.6 pg (26.0-34.0); MCHC 31.1 g/dL (31.0-37.0); MCV 91.9 fL (80.0-100.0); MEAN PLATELET VOLUME 9.6 fL (7.4-10.4); MONOCYTES 6.3 % (2-11); NEUTROPHILS 62.9 % (40-80); RBC 4.96 10x6/uL (4.00-5.40); RDW 13.6 % (11.5-14.5); WBC 7.4 10x3/uL (4.8-10.8)
[2020-03-04 10:51] LABS: PLATELET COUNT 219 10x3/uL (130-400)
[2020-03-04 10:58] LABS: ANION GAP 11.7 mmol/L (8-16); CALCIUM 9.6 mg/dL (8.5-10.1); CARBON DIOXIDE 31.7 mmol/L (21.0-32.0); CREATININE - SERUM 1.6 mg/dL (0.6-1.3); POTASSIUM - SERUM 3.4 mmol/L (3.5-5.1)
[2020-03-04] MEDS ORDERED: POTASSIUM PO (11:27)
[2020-03-04] MEDS ORDERED: HYDROCODON-ACE1 EAC7 PO (13:10)
--- NOTE | 2020-03-04 15:35 | NUR ---
3638 DR DUNNE PAGED. ABOUT TAKING HER ELIQUIS AND PT MEDICATED FOR PAIN.
--- NOTE | 2020-03-04 15:36 | NUR ---
6035 DR DUNNE PAGED AND NO RETURN CALL. CONTINUED PAIN TO RECTAL AREA
--- NOTE | 2020-03-04 17:45 | NUR ---
1540 BLADDER SCAN PT X3 ZERO URINE. BLADDER SOFT. PT ON LASIX 40MG THREE TIMES A WEEK. LAST DOSE MONDAY. IVF GIVEN BUT NOT WIDE OPEN. NO SOB RECIEVED LARGE GLASS OF WATER TO DRINK. SMALL AMT OF BLOOD ON DRESSING
--- NOTE | 2020-03-04 18:21 | NUR ---
[address] DUNNE ABOUT PT ON LASIX 40MG 3X WEEK AND NO URINE FROM SCANNER. ORDERS GIVEN FOR IV LASIX
--- NOTE | 2020-03-04 19:20 | NUR ---
1850 ASSISTED UP TO BEDSIDE COMMODE AND VOIDED ADEQUITE AMT CLEAR YELLOW URINE. 1700ML IVF IN AND INSTRUCTIONS GIVEN TO .
--- NOTE | 2020-03-04 19:21 | NUR ---
1909 IV REMOVED AND PRESSURE HELD
== END 2020-03-04 19:22 | disposition home or self-care (01) ==
LOC: D.OPS 10:20 → D.PAN 12:45 → D.OPS 13:45
PROVIDERS: Anesthesiology; ATTEND Surgery
DX: K62.5 Hemorrhage of anus and rectum (principal); K64.8 Other hemorrhoids; E03.9 Hypothyroidism, unspecified; E11.9 Type 2 diabetes mellitus without complications; E78.2 Mixed hyperlipidemia; J45.909 Unspecified asthma, uncomplicated; Z86.73 Personal history of transient ischemic attack (TIA), and cerebral infarction without residual deficits; Z86.718 Personal history of other venous thrombosis and embolism

== ENCOUNTER → 2020-03-23 21:22 | Outpatient (CLI) | payer MEDICARE ==
[2020-03-04 11:35] VITALS: BMI 26.1
[~2020-03-23 21:22] MED LIST changes: +HYDROCODON-ACE1 EAC7 PO; +POTASSIUM PO
== END | disposition home or self-care (01) ==
LOC: D.LABREF 21:22
PROVIDERS: ATTEND Orthopaedic Surgery
DX: M19.011 Primary osteoarthritis, right shoulder (principal)

== ENCOUNTER → 2020-04-14 17:59 | Outpatient (CLI) | payer MEDICARE ==
[2020-03-31 10:19] VITALS: BMI 26.8
[~2020-04-14 17:59] MED LIST changes: +ALBUTEROL0.63 MG/3 INH; +FUROSEMIDE20 MG; +LOVENOX30 MG/0.3 IM; +MELATONIN; +ZANAFLEX2 M1 PO
[2020-04-14 18:42] LABS: ANION GAP 9.2 mmol/L (8-16); CALCIUM 9.3 mg/dL (8.5-10.1); CARBON DIOXIDE 33.3 mmol/L (21.0-32.0); CREATININE - SERUM 1.2 mg/dL (0.6-1.3); MAGNESIUM - SERUM 1.8 mg/dL (1.8-2.4); POTASSIUM - SERUM 3.5 mmol/L (3.5-5.1)
== END | disposition home or self-care (01) ==
LOC: D.LABREF 17:59
PROVIDERS: ATTEND Family Medicine
DX: I50.9 Heart failure, unspecified (principal)